=== PATIENT | female | born 2005 | race Caucasian/White ===

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

== ENCOUNTER 2023-10-14 10:42 | Outpatient (CLI) | payer BC, SELFPAY ==
--- OUTSIDE RECORDS SUMMARY | 2023-10-14 10:45 | XMS_ITS | Clinical Summary ---
Author Organization [facility] Address [place], [place] [address] Care Team Providers Care Repair Cameraman Name Role Phone Pcp, No Primary Care Provider Unavailabl e Allergies Active Allergy Reactions Criticality Noted Date Comments Doxycycline Hyclate Nausea And Vomiting Low 023 No breathing or cutaneous reaction. Medications Medication Sig Dispensed Refills Start Date End Date Status Becky 3-0.03 mg tablet Take 1 Tablet by mouth once daily. 08/12/2020 Active ketoconazole 2% shampoo (NIZORAL) 2 % shampoo apply on scalp every other day to daily and rinse well 10/22/2021 Active FLUoxetine (PROZAC) 20 mg capsule Take 20 mg by mouth once daily. 04/09/2022 Active omeprazole (PRILOSEC) 20 mg Delayed-Release capsule 05/21/2022 Active ondansetron (Zofran) 4 mg tabletIndications:Mitch sea Take 2 Tablets (8 mg) by mouth two times daily. 4 Tablet 05/27/2022 Active Active Problems Problem Noted Date Diagnosed Date Chlamydia 05/27/2022 STD exposure 05/27/2022 Social History Tobacco Use Types Packs/Day Years Used Date Smoking Tobacco: Never Passive Smoke Exposure: Never Smokeless Tobacco: Never Tobacco Cessation:Counseling Given: Not Answered Alcohol Use Standard Drinks/Week Comments Yes 0 (1 standard drink = 0.6 oz pur e alcohol) social/weekends PHQ-2 Answer Date Recorded PHQ-2 TOTAL SCORE 1 05/27/2022 Sex and Gender Information Value Date Recorded Sex Assigned at Not on file Gender Identity Not on file Sexual Orientation Not on file Obstetrics History Para Term AB IAB SAB Ectopic Multiple Livin g Live Births 0 0 0 0 0 0 0 0 0 0 0 Last Filed Vital Signs Vital Sign Reading Time Taken Comments Blood Pressure 110/68 05/27/2022 11:25 AM CDT Pulse 72 05/27/2022 11:25 AM CDT Temperature 36.3 ??C (97.4 ??F) 11/15/2021 10:32 AM C DT Respiratory Rate 16 11/15/2021 10:32 AM CDT Oxygen Saturation 99% 11/15/2021 10:32 AM CDT Inhaled Oxygen Concentration - - Weight 70.3 kg (155 lb) 05/27/2022 11:25 AM CDT Height 177.8 cm (5' 10) 05/27/2022 11:25 AM CDT Body Mass Index 22.24 05/27/2022 11:25 AM CDT Plan of Treatment Health Maintenance Due Date Last Done Comments Well Child Check for age 3-20 07/17/2006 Tdap 08/17/2014 HPV series for age 9-26 (1 - 3-dose series) 08/17/2018 COVID-19 vaccine series ( season) 2022 03/16/2021, 07/16/2020, 06/25/2020 BMI (ht and wt on same day) for age 18+ 05/28/2023 05/27/2022 Chlamydia for age 16-24 05/28/2023 05/28/19 23, 11/15/2021 Depression screening for age 12+ 05/28/2023 05/27/2022 Tetanus booster 2023 Influenza for age 9-49 10/31/2023 HIV for age 15-65 Completed 05/27/2022 Hepatitis C screening for ag e 18-79 Completed 05/27/2022 Meningococcal series for age 11-21 Aged Out No longer eligible b ased on patient's age to complete this topic Pneumococcal series for age 6-64 Aged Out No longer eligible b ased on patient's age to complete this topic Procedures Procedure Name Priority Date/Time Associated Diagnosis Comments LC HIV-1/O/2, 4TH GENERATION Routine 05/27/2022 11:47 AM CDT STD exposure LC HCV ANTIBODY RFX TO QUANT PCR Routine 05/27/2022 11:47 AM CDT STD exposure GC CHLAMYDIA TRACH PROBE Routine 05/27/2022 10:40 AM CDT STD exposure from Last 3 Months or Most Recently Relevant to Health Maintenance Results * LC HCV ANTIBODY RFX TO QUANT PCR (05/27/2022 11:47 AM CDT) HCV Ab Non Reactive Non Reactive 05/29/2022 10:10 AM CDT [facility] Blood BLOOD SPECIMEN / Unknown Venipuncture / Unknown 05/27/2022 11:47 AM CDT 05/27/2022 11:50 AM CDT Narrative [facility] - 05/29/2022 10:10 AM CDT Performed at: ??[address] - [address] ??[id number] Label Tacker: Arcadio Fraga MD, Phone: ??[phone] Germania Sullivan MD [facility] [address] [place] [address] * LC HIV-1/O/2, 4TH GENERATION (05/27/2022 11:47 AM CDT) HIV Scr 4th Gen Non Reactive Non Reactive 05/29/2022 11:09 AM CDT [facility] Comment: HIV Negative HIV-1/HIV-2 antibodies and HIV-1 p24 antigen were NOT detected. There is no laboratory evidence of HIV infection. Blood BLOOD SPECIMEN / Unknown Venipuncture / Unknown 05/27/2022 11:47 AM CDT 05/27/2022 11:50 AM CDT Narrative [facility] - 05/29/2022 11:09 AM CDT Performed at: ??01 - [facility] [address] ??[id number] Label Tacker: Arcadio Fraga MD, Phone: ??[phone] Germania Sullivan MD [facility] [address] * GC CHLAMYDIA TRACH PROBE (05/27/2022 10:40 AM CDT) CHLAMYDIA PROBE Negative 3:01 PM CDT [facility] N GONORRHOEAE PROBE Negative 05/28/2022 3:01 PM CDT [facility] Other VAGINAL SWAB / Unknown Non-Blood / Unknown 05/27/2022 10:40 AM CDT 05/27/2022 11:53 AM CDT Germania Sullivan MD MICROBIO LOGY [facility] [address] [place] [address], from Last 3 Months or Most Recently Relevant to Health Maintenance Care Teams Repair Cameraman Relationship Specialty Start Date End Date Pcp, No . PCP - General 02/11/19
--- OUTSIDE RECORDS SUMMARY | 2023-10-14 10:46 | XMS_ITS | Encounter Summary ---
Author Organization [facility] Address [address], [place] [address] Care Team Providers Care Station Installer Name Role Phone Ellen Perales MD Primary Care Provider [phone] Reason for Visit * Procedure/Equipment (Routine) - Closed Specialty Diagnoses / Procedures Referred By Mayco soria Referred To Contact Diagnoses Acute pain of left knee Procedures MR Knee Lt WO IV Cont Herbie Stewart, DO [address] [address] Referral ID Status Reason Start Date Expiration Date Visits Re quested Visits Authorized [id number] Closed 07/15/2023 10/13/2024 1 1 Encounter Details Date Type Department Care Team (Late st Contact Info) Description 07/16/2023 5:30 PM CDT Ancillary Procedure [facility] [address] Radiology MRI [address] [place] [phone] Herbie Stewart DO [address] [facility] [place] [address] Acute pain of left knee Social History Tobacco Use Types Packs/Day Years Used Date Smoking Tobacco: Never Smokeless Tobacco: Never Sex and Gender Information Value Date Recorded Sex Assigned at Not on file Gender Identity Not on file Sexual Orientation Not on file documented as of this encounter Plan of Treatment Upcoming Encounters Date Type Department Care Team (Late st Contact Info) Description 10/15/2023 8:40 AM CDT Appointment [facility] [address] [place] [phone] Bruno Nicolas PA-C [address] [place] [address] 11/10/2023 1:00 PM CDT Appointment [facility] [address] [place] [phone] [place] [address] [place] [address] documented as of this encounter Procedures Procedure Name Priority Date/Time Associated Diagnosis Comments MR KNEE LT WO IV CONT Routine 07/16/2023 5:47 PM CDT Acute pain of left knee documented in this encounter Results * MR Knee Lt WO IV Cont (07/16/2023 5:47 PM CDT) Anatomical Region Laterality Modality Lower Extremity, Knee, Skeletal, Thigh, Leg, MSK Left Magnetic Resonance 07/16/2023 5:22 PM CDT Impressions 07/16/2023 6:00 PM CDT COMPARISON: MRI 03/08/2023. TECHNIQUE: Routine MRI of the left knee was performed without contrast. FINDINGS: MEDIAL COMPARTMENT: There are no focal cartilage defects. Some degenerative signal at the root of the posterior horn medial meniscus is similar to previous. The medial meniscus is otherwise intact. LATERAL COMPARTMENT: There are no focal cartilage defects. The lateral meniscus is normal without evidence of tear. PATELLOFEMORAL JOINT: There are no focal cartilage defects in the patellofemoral joint. No significant joint effusion. Trace popliteal cyst similar to prior. No osteocartilaginous bodies are identified. Small amount of mildly increased signal within the intercondylar notch immediately superior to the PCL series 4 images 11 and 12, may reflect some mild synovitis. LIGAMENTS AND TENDONS: The anterior and posterior cruciate ligaments, medial collateral ligament, iliotibial band, fibular collateral ligament and biceps femoris tendons are intact. The popliteus muscle and tendons are normal. There is no evidence of injury to the posterolateral corner supporting structures. EXTENSOR MECHANISM: The quadriceps and patellar tendons are normal. The medial retinaculum, medial patellofemoral ligament, and lateral retinaculum are normal. MARROW AND SOFT TISSUES: Marrow signal is unremarkable. Previously noted marrow edema at the posterior aspect of the medial tibial plateau has resolved. No soft tissue mass. IMPRESSION: 1. Some degenerative signal at the root of the posterior horn medial meniscus similar to previous. . No discrete meniscal tear identified. 2. No ligamentous tear focal chondral defect. 3. Previously noted marrow edema at the posterior aspect of the medial tibial plateaus resolved. 4. Question some mild synovitis at the intercondylar notch. Narrative Procedure Note Justin Trujillo MD - 07/16/2023 IMPRESSION COMPARISON: MRI 03/08/2023. TECHNIQUE: Routine MRI of the left knee was performed without contrast. FINDINGS: MEDIAL COMPARTMENT: There are no focal cartilage defects. Somedegenerative signal at the root of the posterior horn medial meniscus issimilar to previous. The medial meniscus is otherwise intact. LATERAL COMPARTMENT: There are no focal cartilage defects. The lateralmeniscus is normal without evidence of tear. PATELLOFEMORAL JOINT: There are no focal cartilage defects in thepatellofemoral joint. No significant joint effusion. Trace popliteal cystsimilar to prior. No osteocartilaginous bodies are identified. Smallamount of mildly increased signal within the intercondylar notchimmediately superior to the PCL series 4 images 11 and 12, may reflectsome mild synovitis. LIGAMENTS AND TENDONS: The anterior and posterior cruciate ligaments,medial collateral ligament, iliotibial band, fibular collateral ligamentand biceps femoris tendons are intact. The popliteus muscle and tendonsare normal. There is no evidence of injury to the posterolateral cornersupporting structures. EXTENSOR MECHANISM: The quadriceps and patellar tendons are normal. Themedial retinaculum, medial patellofemoral ligament, and lateralretinaculum are normal. MARROW AND SOFT TISSUES: Marrow signal is unremarkable. Previously notedmarrow edema at the posterior aspect of the medial tibial plateau hasresolved. No soft tissue mass. IMPRESSION: 1. Some degenerative signal at the root of the posterior horn medialmeniscus similar to previous. . No discrete meniscal tear identified. 2. No ligamentous tear focal chondral defect. 3. Previously noted marrow edema at the posterior aspect of the medialtibial plateaus resolved. 4. Question some mild synovitis at the intercondylar notch. Herbie NEWBERRY MRI documented in this encounter Visit Diagnoses Diagnosis Acute pain of left knee documented in this encounter Care Teams Station Installer Relationship Specialty Start Date End Date Ellen Perales MD [address] [facility] [address] [place] [address] PCP - General 09/27/14 documented as of this encounter
--- OUTSIDE RECORDS SUMMARY | 2023-10-14 10:46 | XMS_ITS | Encounter Summary ---
Author Organization [facility] Address [address], [place] [address] Care Team Providers Care Wood Cut Engraver Name Role Phone Ellen Perales MD Primary Care Provider [phone] Reason for Referral * Therapies (Routine) - New Request Specialty Diagnoses / Procedures Referred By Mayco soria Referred To Contact Diagnoses Acute medial meniscus tear of left [place], [place] [address] [place] [address] [facility] [address] [address] Referral ID Status Reason Start Date Expiration Date V isits Requested Visits Authorized [id number] New Request 09/19/2023 09/18/2024 1 1 Scheduling Instructions This order is your clinician's recommendation for a service and is not an insurance referral which authorizes payment. The recommended service and/or location may not be covered by your insurance plan. Please call the number on your insurance card to find out your specific benefits and coverage for the recommended services and/or location. If you need help scheduling the recommended services, please ask your clinician's staff to assist you. Question Answer Appointment Urgency? Non-Urgent Requested Services Evaluate and treat May use saline for irrigation or cleansing Yes dexamethasone use Yes May check glucose per protocol (see policy link below) or if patient has symptoms? Yes Comments Left Knee Arthroscopy, Possible Partial Meniscectomy, Possible Meniscus Repair (Medial) scheduled for Tu, 09/28/23 Pt to start 3-5 days post op. Please see OP report for post op restrictions and protocol Encounter Details Date Type Department Care Team (Late st Contact Info) Description 09/19/2023 Notes/Orders [facility] [address] [place] [phone] [place] [address] [place] [address] Acute medial meniscus tear of left knee, subsequent encounter (Primary Dx) Social History Tobacco Use Types Packs/Day Years Used Date Smoking Tobacco: Never Smokeless Tobacco: Never Sex and Gender Information Value Date Recorded Sex Assigned at Not on file Gender Identity Not on file Sexual Orientation Not on file documented as of this encounter Plan of Treatment Upcoming Encounters Date Type Department Care Team (Late st Contact Info) Description 10/15/2023 8:40 AM CDT Appointment [facility] [address] [place] [phone] Bruno Nicolas PA-C [address] [place] [address] 11/10/2023 1:00 PM CDT Appointment [facility] [address] [place] [phone] [place] [address] [place] [address] Scheduled Referrals Name Type Priority Associated Diagnoses Orde r Schedule Physical Therapy Referral Routine Acute medial meniscus tear of left knee, subsequent encounter Ordered: 09/19/2023 documented as of this encounter Visit Diagnoses Diagnosis Acute medial meniscus tear of left knee, subsequent encounter- Primary documented in this encounter Care Teams Wood Cut Engraver Relationship Specialty Start Date End Date Ellen Perales MD [address] [facility] [address] [place] [address] PCP - General 09/27/14 documented as of this encounter
--- OUTSIDE RECORDS SUMMARY | 2023-10-14 10:46 | XMS_ITS | Encounter Summary ---
Author Organization [employer] Address [address] [address] Care Team Providers Care Insurance Sales Assistant Name Role Phone Ellen Perales MD Primary Care Provider Reason for Visit * (Routine) - Incomplete Specialty Diagnoses / Procedures Referred By Mayco soria Referred To Contact Procedures US Anesthesia Guided Herbie Muñoz MD [address] [place] [address] Referral ID Status Reason Start Date Expiration Date V isits Requested Visits Authorized [id number] Incomplete 09/28/2023 12/27/2024 1 1 Encounter Details Date Type Department Care Team (Late st Contact Info) Description 09/28/2023 10:20 AM CDT Ancillary Procedure Radiology PACS [address] [place] [address] Social History Tobacco Use Types Packs/Day Years Used Date Smoking Tobacco: Never Smokeless Tobacco: Never Alcohol Use Standard Drinks/Week Comments Never 0 (1 standard drink = 0.6 oz pur e alcohol) Humiliation, Afraid, Rape, a nd Kick questionnaire Answer Date Recorded Fear of Current or Ex-Partner Not on file Within the last year, have y ou been humiliated or emotionally abused in other ways by your partner or ex-partner? Patient unable to answer 09/28/2023 Within the last year, have y ou been kicked, hit, slapped, or otherwise physically hurt by your partner or ex-partner? Patient unable to answer 09/28/2023 Within the last year, have y ou been raped or forced to have any kind of sexual activity by your partner or ex-partner? Patient unable to answer 09/28/2023 PHQ-2 Answer Date Recorded PHQ-2 Score 0 09/21/2023 Sex and Gender Information Value Date Recorded Sex Assigned at Not on file Gender Identity Not on file Sexual Orientation Not on file documented as of this encounter Plan of Treatment Upcoming Encounters Date Type Department Care Team (Late st Contact Info) Description 10/15/2023 8:40 AM CDT Appointment [facility] [address] [place] [phone] Bruno Nicolas PA-C [address] [place] [address] 11/10/2023 1:00 PM CDT Appointment [facility] [address] [place] [phone] [place] [address] [place] [address] documented as of this encounter Procedures Procedure Name Priority Date/Time Associated Diagnosis Comments US ANESTHESIA GUIDED BLOCK STAT 09/28/2023 10:16 AM CDT documented in this encounter Results * US Anesthesia Guided Block (09/28/2023 10:16 AM CDT) Anatomical Region Laterality Modality Ultrasound Narrative 09/28/2023 10:16 AM CDT If an Anesthesia block was performed please see the Anesthesia encounter for documentation. ??This procedure was performed and interpreted by the performing provider. ?? Herbie Grande MD [facility] documented in this encounter Visit Diagnoses Not on filedocumented in this encounter Care Teams Insurance Sales Assistant Relationship Specialty Start Date End Date Ellen Perales MD [address] [facility] [address] [place] [address] PCP - General 09/27/14 documented as of this encounter
--- OUTSIDE RECORDS SUMMARY | 2023-10-14 10:46 | XMS_ITS | Encounter Summary ---
Author Organization [email or web address] Address [address], [place] [address] Care Team Providers Care C S S Representative Name Role Phone Ellen Perales MD Primary Care Provider Reason for Referral * Consult/Transfer Care (Routine) - New Request Specialty Diagnoses / Procedures Referred By Mayco soria Referred To Contact Diagnoses Chronic pain of left knee Frandy Merino MD [address] [place] [address] Referral ID Status Reason Start Date Expiration Date V isits Requested Visits Authorized [id number] New Request 07/16/2023 10/14/2024 1 1 Scheduling Instructions Your clinician has recommended an appointment with [facility]. You can quickly make your appointment online at [email or web address]. You can also call [phone] for help scheduling your appointment. We suggest you call your health insurance company about your coverage and benefits for this appointment. Question Answer Appointment Urgency? Non-Urgent Reason for visit? Left knee medial meniscus The patient should be seen by: Orthopaedic Surgeon Comments Mariama Reason for Visit * Reason Comments KNEE PAIN Lt, Ongoing since MRI Results Encounter Details Date Type Department Care Team (Late st Contact Info) Description 07/16/2023 6:00 PM CDT Office Visit [facility] [address] [place] [address] Frandy Merino MD [address] [place] [address] Chronic pain of left knee (Primary Dx) Social History Tobacco Use Types Packs/Day Years Used Date Smoking Tobacco: Never Smokeless Tobacco: Never Sex and Gender Information Value Date Recorded Sex Assigned at Not on file Gender Identity Not on file Sexual Orientation Not on file documented as of this encounter Last Filed Vital Signs Vital Sign Reading Time Taken Comments Blood Pressure - - Pulse - - Temperature 36.6 ??C (97.9 ??F) 07/16/2023 6:09 PM CD T Respiratory Rate - - Oxygen Saturation - - Inhaled Oxygen Concentration - - Weight - - Height - - Body Mass Index - - documented in this encounter Patient Instructions * Patient Instructions* Cheryl Rosa ATC - 07/16/2023 6:00 PM CDT Thank you for choosing [facility] for your health care visit today. If you have any questions regarding your visit or next steps, please contact us at [phone]. Frandy Merino MD Medication Requests: Prescriptions are filled on Weekdays before 3:00PM For all medication refills: Request a refill using [employer] or contact your Pharmacy Paperwork Requests: FMLA or disability paperwork can be faxed to: [phone] Please allow 7-10 business days for completion of all paperwork. [facility] Worker's Compensation Services: E-mail Address: [email or web address] What is Know Your Cost? Know Your Cost is a service for patients and patient/members to call and receive personalized cost information and estimates across our care group. The phone number is (COST) Wednesday - Wednesday 8 AM to 5 PM To request copies of your medical records, call: [phone] (option 4) Diagnosis: Left knee medial meniscus pain Plan: Follow Up: With Dr. Leslie on 07/29 as scheduled. documented in this encounter Progress Notes * Frandy Merino MD - 07/16/2023 6:[address] [facility] Date of Service: 07/16/2023 ASSESSMENT/PLAN 1. Chronic pain of left knee -reviewed MRI -refer Orthopedics Knee Sports Catherine Brooks is a 17 y.o. female who presents for follow-up on chronic left knee pain that initially started back in December after she fainted to now reviewed new MRI results. Patient drove back from [place] where she goes to college 2 weeks ago and pain has been worsening ever since. She is difficulty localizing the pain and reports deep in her knee. She states she feels swollen but she does not appear swollen. She denies catching, locking, instability. She describes a burning type pain.Reviewed MRI which shows that she has resolution of her posterior bone bruising but still has a blunted edge of her medial meniscus posterior root. Discussed with patient possibility of a root tear that caused her bone bruise posteriorly and continues to bother her now. Recommended we have her see orthopedics to discuss further. Orders Placed This Encounter Orthopaedic Consult Adult/Peds Frandy Merino MD Primary Care Sports Medicine, [facility] SUBJECTIVE KNEE PAIN (Lt, Ongoing since 01/21) and MRI Results () Left knee pain Fainted in Dec after driving back in car 2wk ago --worsening pain Doesn't look swollen but feels swollen Deep inside, hard to describe location OBJECTIVE Pain Assessment Pain Side/Orientation: left Pain Location: knee (0-10) Pain Rating: Activity: 8 MR Knee Lt WO IV Cont COMPARISON: MRI 03/08/2023. TECHNIQUE: Routine MRI of [...] some mild synovitis at the intercondylar notch. documented in this encounter Plan of Treatment Upcoming Encounters Date Type Department Care Team (Late st Contact Info) Description 10/15/2023 8:40 AM CDT Appointment [facility] [address] [place] [phone] Bruno Nicolas PA-C [address] [place] [address] 11/10/2023 1:00 PM CDT Appointment [facility] [address] [place] [phone] [place] [address] [place] [address] Scheduled Referrals Name Type Priority Associated Diagnoses Orde r Schedule Orthopaedic Consult Adult/Peds Referral Routine Chronic pain of left knee Ordered: 07/16/2023 documented as of this encounter Visit Diagnoses Diagnosis Chronic pain of left knee- Primary Pain in joint, lower leg documented in this encounter Care Teams C S S Representative Relationship Specialty Start Date End Date Ellen Perales MD [address] [facility] [address] [place] [address] PCP - General 09/27/14 documented as of this encounter
--- OUTSIDE RECORDS SUMMARY | 2023-10-14 10:46 | XMS_ITS | Encounter Summary ---
Author Organization [employer] Address [address] [address] Care Team Providers Care Dog Pound Attendant Name Role Phone Ellen Perales MD Primary Care Provider Reason for Visit * Reason Comments Surgery, To Schedule Encounter Details Date Type Department Care Team (Late st Contact Info) Description 09/17/2023 Telephone [facility] Orthopa[facility]ics & Sports Medicine [address] [place] [address] [place] [address] [place] [address] Surgery, To Schedule Social History Tobacco Use Types Packs/Day Years Used Date Smoking Tobacco: Never Smokeless Tobacco: Never PHQ-2 Answer Date Recorded PHQ-2 Score 0 09/21/2023 Sex and Gender Information Value Date Recorded Sex Assigned at Not on file Gender Identity Not on file Sexual Orientation Not on file documented as of this encounter Nursing Notes * Lacy Childress I - 09/22/2023 10:06 AM CDT [facility] Orders completed. Surgery finalized for , 09/28/23. * Lacy Childress I - 09/17/2023 5:42 PM CDT Patient contacted. Left Knee Arthroscopy, Possible Partial Meniscectomy, Possible Meniscus Repair (Medial) scheduled for , 09/28/23 [facility] with Dr[address] Leslie. Pre-op & Post-ops scheduled. Patient requests to have PT @ [facility]. Outside PT Order will be faxed. Letter, List of Appts, Knee icemachine pamphlet & [facility] booklet placed @[facility] front end web developer for Patient to machine pecan picker this weekend. [facility] Orders needed. Outside [facility] Orders needed. PT will be @[facility]. documented in this encounter Plan of Treatment Upcoming Encounters Date Type Department Care Team (Late st Contact Info) Description 10/15/2023 8:40 AM CDT Appointment [facility] Orthopa[facility]ics & Sports Medicine [address] [place] [phone] Bruno Nicolas PA-C [address] [place] [address] 11/10/2023 1:00 PM CDT Appointment [facility] Orthopa[facility]ics & Sports Medicine [address] [place] [phone] [place] [address] [place] [address] documented as of this encounter Visit Diagnoses Not on filedocumented in this encounter Care Teams Dog Pound Attendant Relationship Specialty Start Date End Date Ellen Perales MD [address] [facility] [address] [place] [address] PCP - General 09/27/14 documented as of this encounter
--- OUTSIDE RECORDS SUMMARY | 2023-10-14 10:46 | XMS_ITS | Encounter Summary ---
Author Organization [employer] Address [address], [place] [address] Care Team Providers Care Aoc Operations Intelligence Chief Name Role Phone Ellen Perales MD Primary Care Provider Encounter Details Date Type Department Care Team (Latest Contact Info) Description 09/28/2023 Orders Only [facility] DEPART[facility] Provider, [place] [address] Social History Tobacco Use Types Packs/Day Years [...] Info) Description 10/15/2023 8:40 AM CDT Appointment [facility]opa[facility]ics & Sports Medicine [address] [place] [phone] Bruno Nicolas PA-C [address] [place] [address] 11/10/2023 1:00 PM CDT Appointment [facility]ics [facility] Sports Medicine [address] [place] [phone] [place] [address] [place] [address] documented as of this encounter Procedures Procedure Name Priority Date/Time Associated Diagnosis Comments EKG 09/28/2023 documented in this encounter Results * EKG (09/28/2023) Interface Provider EKG documented in this encounter Visit Diagnoses Not on filedocumented in this encounter Care Teams Aoc Operations Intelligence Chief Relationship Specialty Start Date End Date Ellen Perales MD [address] [facility] [address] [place] [address] PCP - General 09/27/14 documented as of this encounter
--- OUTSIDE RECORDS SUMMARY | 2023-10-14 10:46 | XMS_ITS | Encounter Summary ---
Author Organization [facility] Address [address], [place] [address] Care Team Providers Care Ingredient Handler Name Role Phone Ellen Perales MD Primary Care Provider Reason for Referral * Procedure/Equipment (Routine) - Incomplete Specialty Diagnoses / Procedures Referred By Mayco t Referred To Contact Diagnoses Acute medial meniscus tear of left knee, subsequent encounter Procedures Case Request OR - Orthopedic Surgery: Left knee arthroscopy, possible partial meniscectomy, [place] [address] [place] [address] Referral ID Status Reason Start Date Expiration Date V isits Requested Visits Authorized [id number] Incomplete 09/22/2023 12/21/2024 1 1 Reason for Visit * Reason Comments Follow-up Left knee Encounter Details Date Type Department Care Team (Late st Contact Info) Description 09/17/2023 8:00 AM CDT Office Visit [facility] [place] [facility] [address] [place] [address] [place] [address] [place] [address] Acute medial meniscus tear of left knee, subsequent encounter (Primary Dx) Social History Tobacco Use Types Packs/Day Years Used Date Smoking Tobacco: Never Smokeless Tobacco: Never PHQ-2 Answer Date Recorded PHQ-2 Score 0 09/21/2023 Sex and Gender Information Value Date Recorded Sex Assigned at Not on file Gender Identity Not on file Sexual Orientation Not on file documented as of this encounter Patient Instructions * Patient Instructions* Chago Hinson MD - 09/17/2023 8:00 AM CDT Thank you for being seen today at [facility] Your Diagnosis is: Medial meniscus possible tear, medial knee pain Your Recommended Treatment is: Surgery: Knee arthroscopy, possible partial meniscectomy, possible meniscus repair -This is a same day surgery, and typically takes 1-2 hours to complete. -Surgery is done through two poke hole incisions on the front of the knee. Occasionally small incisions are required on the side of the knee for the repair. -If a repair is required, you will be partial weight bearing, using a brace and crutches for the first 4-6 weeks after surgery. No driving if it is your right leg until you are cleared for full weight bearing. -If it is just a trim (meniscectomy), then you are cleared for full weight bearing and no brace is needed. You will use crutches for support until you are able to walk without a limp -A meniscal repair takes 4-6 months for complete recovery, while a meniscectomy typically take 6-8 weeks for complete recovery For more information about your diagnosis, please visit: [email or web address]. On the top tab, click patient info, then patient education videos. Under the knee section, click on the meniscal tears video. Lacy is my energy scheduler. She will call you to arrange for a date and time. Her number is [phone] if you have any questions. Chago Hinson MD Orthopaedic Surgery [phone] documented in this encounter Progress Notes * Chago Hinson MD - 09/17/2023 8:00 AM CDTAddended by: CHAGO HINSON on: 09/22/2023 07:42 AM Modules accepted: Orders * Chago Hinson MD - 09/17/2023 8:00 AM CDT [facility] Orthopaedic Surgery and Sports Medicine Follow-Up/Pre-Operative Check 09/17/23 NAME: Catherine Brooks [facility]: [id number] Chief Complaint: Left knee pain. History of Present Illness: Catherine Brooks is a 18 y.o. female who presents accompanied by her father for follow-up of left knee pain. She has been attempting physical therapy once a week for the past 6 weeks. She continues to have medial sided knee pain all the time. She has been using ibuprofen and naproxen for this. Shestates her knee is worse compared to what it was when she was last seen. She reports the pain is on the inside of the knee, inside the kneecap. She found no benefit with physical therapy and states there was no much she could tolerate and was only able to have dry needling a couple of times, which she did not respond to and she also worked on the muscles around it. She reports being unable to perform the exercises at physical therapy. She reports no new injury. She reports occasional mechanical symptoms of locking, catching, popping, and clicking. She is going back to school around October 18. She is interested in having surgery to resolve this before she goes back to school. Physical Exam: General: The patient is alert, oriented in no acute distress. Neuro: Answers questions appropriately. Left Knee: Range of Motion: Extension: Full, Flexion: 140 Tenderness over the patella, most tenderness over the medial joint line. Nasrin's: Grade 1A Varus Stress: In full extension 0, at 30 degrees flexion negative Valgus Stress: In full extension 0, at 30 degrees flexion negative Bailey's to Varus: Positive Bailey's to Valgus: Negative Imaging: MRI of the left knee: MRI Impression (07/16/23): 1. Some degenerative signal at the root of the posterior horn medial meniscus similar to previous. . No discrete meniscal tear identified. 2. No ligamentous tear focal chondral defect. 3. Previously noted marrow edema at the posterior aspect of the medial tibial plateaus resolved. 4. Question some mild synovitis at the intercondylar notch. I ordered and independently reviewed and interpreted the imaging studies above; the results were discussed with the patient. Assessment: 1. Acute medial meniscus tear of left knee, subsequent encounter 18 y.o. female with persistent medial sided knee pain over the past 7 months with imaging showing degeneration and possible tearing of the posterior horn of the medial meniscus. She continues to haveintermittent mechanical symptoms. Plan: I had a lengthy discussion with the patient regarding non-surgical and surgical treatment for her left knee pain and possible meniscus tear. We discussed that we could consider a PRP injection and continue physical therapy as opposed to surgery. At this time, as the patient has exhausted non-surgical care for the past 7 months, she desires to proceed with surgery. Surgery will include left knee arthroscopy, possible partial medial menisectomy, possible meniscus repair. We will plan to have the patient arrange for a date and time in the near future. Scribe Disclosure: I, Hilda Kingston, am serving as a scribe to document services personally performed by Chago Hinson MD at this visit, based upon the provider's statements to me. All documentation has been reviewed by the aforementioned provider prior to being entered into the official medical record. Portions of this medical record were completed by a scribe. UPON MY REVIEW AND AUTHENTICATION BY ELECTRONIC SIGNATURE, this confirms (a) I performed the applicable clinical services, and (b) the record is accurate. Chago Hinson MD documented in this encounter Plan of Treatment Upcoming Encounters Date Type Department Care Team (Late st Contact Info) Description 10/15/2023 8:40 AM CDT Appointment [facility] Orthopaedics & Sports Medicine [address] [place] [phone] Bruno Nicolas PA-C [address] [place] [address] 11/10/2023 1:00 PM CDT Appointment [facility] Orthopaedics & Sports Medicine [address] [place] [phone] [place] [address] [place] [address] documented as of this encounter Visit Diagnoses Diagnosis Acute medial meniscus tear of left knee, subsequent encounter- Primary documented in this encounter Care Teams Ingredient Handler Relationship Specialty Start Date End Date Ellen Perales MD [address] [facility] [address] [place] [address] PCP - General 09/27/14 documented as of this encounter
--- OUTSIDE RECORDS SUMMARY | 2023-10-14 10:46 | XMS_ITS | Encounter Summary ---
Author Organization [employer] Address [address] [address] Care Team Providers Care Back Tender Pulp Drier Name Role Phone Ellen Perales MD Primary Care Provider [phone] Reason for Visit * Auth/Cert (Routine) Specialty Diagnoses / Procedures Referred By Mayco soria Referred To Contact Diagnoses Acute medial meniscus tear of left knee, subsequent encounter Procedures Left knee arthroscopy, possible partial meniscectomy, possible meniscus repair Referral ID Status Reason Start Date Expiration Date Visits Re quested Visits Authorized [id number] 1 1 Encounter Details Date Type Department Care Team (Late st Contact Info) Description 09/28/2023 11:30 AM CDT - 09/28/2023 12:55 PM CDT [facility] [address] [place] [phone] [place] [address] [place] [address] Left knee arthroscopy with limited debridement Social History Tobacco Use Types Packs/Day Years [...] Sign Reading Time Taken Comments Blood Pressure 108/65 09/28/2023 12:45 PM CDT Pulse 54 09/28/2023 12:45 PM CDT Temperature 36.6 ??C (97.9 ??F) 09/28/2023 12:20 PM C DT Respiratory Rate 18 09/28/2023 12:45 PM CDT Oxygen Saturation 100% 09/28/2023 12:45 PM CDT Inhaled Oxygen Concentration - - Weight - - Height - - Body Mass Index - - documented in this encounter Medications at Time of Discharge Medication Sig Dispensed Refills Start Date End Date acetaminophen (TYLENOL) 325 MG tablet Take 1-2 Tablets (325-650 mg) by mouth every 4 hours as needed for Pain. 60 Tablet 1 09/28/2023 FLUoxetine (PROZAC) 20 MG capsule Take 1 Capsule (20 mg) by mouth daily. ibuprofen (MOTRIN) 200 MG tablet Take 2-3 Tablets (400-600 mg) by mouth every 6 hours as needed for Pain. 60 Tablet 1 09/28/2023 ondansetron (ZOFRAN-ODT) 4 MG disintegrating tablet Take 1-2 Tablets (4-8 mg) by mouth every 8 hours as needed for Nausea. 10 Tablet 09/28/2023 oxyCODONE (ROXICODONE) 5 MG immediate release tablet Take 1-2 Tablets (5-10 mg) by mouth every 4 hours as needed for Pain. 30 Tablet 09/28/2023 senna (SENNA LAXATIVE) 8.6 MG tablet Take 1 Tablet by mouth two times daily as needed for Constipation. 10 Tablet 09/28/2023 MARGRET 3-0.03 MG tablet Take 1 Tablet by mouth daily. 04/23/2021 aspirin EC 81 MG enteric coated tablet Take 1 Tablet (81 mg) by mouth two times a day with meals for 14 days. Take as prescribed to decrease the risk of blood clots after surgery 28 Tablet 09/28/2023 10/12/2023 documented as of this encounter Progress Notes * Marilyn Narayanan RN - 09/22/2023 12:50 PM CDT PPA call completed by calling [phone] and spoke to patient. Advised of arrival time 0930. Reviewed pre-procedure questions, detailed instructions with NPO guidelines and address given. All questions answered, no other needs at this time. documented in this encounter H&P Notes * Chago Leslie MD - 09/28/2023 10:53 AM CDT Surgery Update for Preop History and Physical For 09/28/2023 scheduled procedure Update to H&P includes: Patient and/or family denies any health changes since the H&P This patient has been evaluated by me today and has been found to be a suitable candidate for surgery. 09/28/2023 Source Note - Cassi Lopez APRN, SPECIAL ASSEMBLIES SUPERVISOR - 09/21/2023 2:30 PM CDT Pre-Operative Assessment 09/21/2023 ET Amb PreOp Assessment Details Procedure Left Knee Arthroscopy, Possible Partial Meniscectomy, Possible Meniscus Repair (Medial) Surgeon Dr. Leslie [facility] Ambulatory Surgery Procedure Date 09/28/2023 Jim Alexander is a 18 y.o. old female here for pre-operative evaluation for procedure noted above. Patient Active Problem List Diagnosis Date Noted Anxiety with depression ([facility]) 09/21/2023 Irritable bowel syndrome with constipation 09/26/2019 Past Medical History: Diagnosis Date Chlamydia ([facility]) 05/27/2022 STD exposure 05/27/2022 History reviewed. No pertinent surgical history. Current Outpatient Medications Medication Instructions FLUoxetine (PROZAC) 20 mg, Oral, DAILY MARGRET 3-0.03 MG tablet 1 Tablet, Oral, DAILY Allergies Allergen Reactions Doxycycline Nausea And Vomiting No breathing or cutaneous reaction. Social History Occupational History Not on file Tobacco Use Smoking status: Never Smokeless tobacco: Never Vaping Use Vaping status: Never Used Substance and Sexual Activity Alcohol use: Never Drug use: Never Sexual activity: Not on file Patient's last menstrual period was 08/30/2023 (approximate). Family History Problem Relation Age of Onset Cancer Mother Review of Systems: 09/21/2023 ET Amb PreOp Assessment Sx Have you had a heart attack in the last 30 days? No Have you experienced chest tightening or chest pressure with activity? No Do you wake at night with difficulty breathing? No Do you have swelling in your feet or ankles? No Do you get short of breath if lying flat at night? No Do you hear wheezing or whistling when you breathe? No Have you had a cough, runny nose, or cold symptoms in the last 2 weeks? No Have you tested positive for Covid in the last 6 months? No Do you have a long-standing cough? No Do you snore or are you sleepy during the day? No Do you have any symptoms due to a recent concussion? No Do you or close relatives have bleeding or clotting problems? No Have you taken Aspirin, Ibuprofen (Advil) or Naproxen (Aleve) in the last 7 days? Yes Do you or close relatives have a history of a severe or life-threatening reaction to anesthesia? No Estimated Functional Capacity: Can you climb one flight of stairs, or walk up a gradual uphill without stopping? yes, functional capacity is more than or equal to 4 METS Objective BP 119/74 (BP Location: Right Arm, BP Cuff Size: Regular) Pulse 65 Ht 5' 9.88 (1.775 m) Wt 137 lb 3.2 oz (62.2 kg) LMP 08/30/2023 (Approximate) BMI 19.75 kg/m?? Physical Exam: General Appearance: alert, well appearing, and in no apparent distress Eyes: lids normal, sclera clear, and conjunctiva normal ENT: oropharynx clear, ear canals clear, and TMs normal Neck: no lymphadenopathy and no thyromegaly or nodules Heart: regular rate and rhythm and no murmurs, gallops or rubs Lungs: clear to auscultation and no wheezes, rales or rhonchi Abdomen: soft, nondistended, nontender, no palpable masses, and no organomegaly Extremities: no edema Skin: no rashes or worrisome lesions Neurologic: normal speech, no facial droop, alert and oriented x 3, and normal gait Data: Labs: Today: 09/21/2023. Hemoglobin 11.8 ECG: Not indicated for this procedure. Assessment/Plan Patient is medically optimized for planned procedure(s). ICD-10-CM 1. Preop examination Z01.818 Complete Blood Count-No Diff 2. Tear of medial meniscus of left knee, current, unspecified tear type, subsequent encounter S83.242D Special risks: None Medication recommendations: Patient Instructions Follow your individualized medication recommendations as described above. In addition, please stop all [id number] medications including aspirin, ibuprofen (Advil, Motrin), naproxen (Aleve, Naprosyn), herbal remedies and supplements one week prior to procedure unless directed otherwise by your care team. You may continue to take acetaminophen (Tylenol) up to the dayof your procedure. Continue all other medications as currently taking. Let your care team know if you have questions. On the day of your procedure, do not wear any hair product including hair sprays and gels and avoidusing body sprays and deodorants/antiperspirants. Bring with you to the site of the procedure: Any oral appliances or CPAP equipment related to sleep apnea Any other health-related equipment or devices you use daily Electronically signed by: Cassi Lopez APRN, CNP 09/21/2023, 3:25 PM documented in this encounter Procedure Notes * Chago Leslie MD - 09/28/2023 12:07 PM CDT OPERATIVE REPORT Catherine Matatz 2005 SURGEON: Chago Leslie MD ASSISTANTS: STEPHANIE Goodman DATE OF SURGERY: 09/28/2023 PREOPERATIVE DIAGNOSES: Left knee medial meniscus tear. POSTOPERATIVE DIAGNOSIS: Left knee medial meniscus intact Impinging synovitis anterior interval Exam under anesthesia: Left knee ROM 0 deg to 140 deg. ACL intact, negative sarthak. PCL intact, negative posterior drawer. LCL intact, negative varus stress test at 0 and 30 deg. MCL intact, negative valgus stress test at 0 and 30 deg. Impinging synovitis anterior interval Patella cartilage okay Trochlea cartilage okay Lateral tibial plateau cartilage okay Lateral femoral condyle cartilage okay Medial tibial plateau cartilage okay Medial femoral condyle cartilage okay Lateral meniscus intact, no tears. Medial meniscus intact, no tears. PROCEDURES PERFORMED: Left knee arthroscopy with limited debridement and partial synovectomy ANESTHESIA: General ANTIBIOTICS: 2g cefazolin prior to incision ESTIMATED BLOOD LOSS: 5cc TOURNIQUET TIME: 13 min @ 250 mmHg IMPLANTS: none SPECIMENS: None INDICATIONS: This is a 18 y.o. female who sustained a knee injury 8 months ago. This resulted in a medial meniscal injury, with resulted subjective pain, and the inability to perform activities despite exhaustive physical therapy and activity modification. After a thorough discussion of the risks and benefits of surgical treatment, risks include but are not limited to stiffness, arthrofibrosis, continued pain, swelling, retear, decreased sport performance, incision irritation, numbness, infection, blood clot, etc, I dictated a separate consent note, answered all questions and the patient elected to proceed. PROCEDURE: The patient was met in the holding area, limb was signed, and all questions were answered. Preoperative antibiotics were administered. The patient was then taken back to the main Operating Room and underwent a light general anesthetic without complication. The patient was prepped and draped in the usual sterile orthopedic fashion. A surgical timeout was taken confirming correct patient, correct site and correct procedure. A tourniquet was utilized during the case, insufflated to 250 mmHg, afterthe limb was exsanguinated. DIAGNOSTIC KNEE ARTHROSCOPY, LIMITED DEBRIDEMENT AND PARTIAL SYNOVECTOMY: First, a standard diagnostic arthroscopy was started using 2 anteromedial and anterolateral portals. The findings are as described above. I probed and checked all of the medial and lateral meniscus structures. These were fully intact. The cartilage was intact. I paid particular attention to the medial compartment, and created an accessory anteromedial portal for better assessment of the posterior root attachment. This appeared stable and intact. There are no cartilage injuries or other meniscal lesions in the medial compartment. There was synovitis and impinging fat pad in the anterior interval and suprapatellar pouch, and a limited debridement and partial synovectomy of these areas was performed with shaver and RF wand. After a thorough diagnostic arthroscopy, hemostasis was achieved, the tourniquet was let down,and all instruments were removed. CLOSURE: At this point, final pictures were taken and all instruments were removed from the knee. The wounds were closed with 3-0 Monocryl subcuticular stitch, followed by Steri-Strips, xeroform, 7x5hiiph, ABD, cast padding and an Yfn wrap. The patient was awakened from anesthesia without complication and taken to the PACU in stable condition. POSTOPERATIVE PLAN: Weight bearing status: WBAT Brace: none needed ROM: FROM PT plan: General knee arthroscopy protocol. Quadriceps activation, adequate hamstring control DVT prophylaxis: ASA BID x2 weeks Pain Medications: Patient will be discharged with tylenol, ibuprofen, and oxycodone, to take as needed for pain. Other Medications: Bowel regimen to include Senna 100mg BID while patient is taking narcotics. We will also prescribe Zofran 4mg ODT Q8hrs to take as need for nausea. Discharge plan: Plan to discharge patient home today with family, per same day criteria. Follow up: I will see the patient back in 10 to 14 days, or sooner if any concerns. Return to sport plans: Full activities approximately 2-3 months. Chago Leslie MD * Chago Leslie MD - 09/28/2023 12:06 PM CDT [facility] Brief Operative Progress Note Surgery Date: 09/28/2023 Surgeons and Role: * Chago Leslie MD - Primary Visitor: Vendor Chip Separator - Dale Colmenares - Comments: Arthrex Pre-op Diagnosis: * Acute medial meniscus tear of left knee, subsequent encounter [S83.779D] Post-op Diagnosis: * Acute medial meniscus tear of left knee, subsequent encounter [S83.727D] Procedures with associated lateralities: Procedure(s) (LRB): Left knee arthroscopy with limited debridement (Left) EBL: 5 Specimens: * No specimens in log * Complications / Findings: menisci and cartilage intact, synovitis in the anterior interval documented in this encounter Plan of Treatment Upcoming Encounters Date Type Department Care Team (Late st Contact Info) Description 10/15/2023 8:40 AM CDT Appointment [facility] [address] [place] [phone] Bruno Nicolas PA-C [address] [place] [id number] 11/10/2023 1:00 PM CDT Appointment [facility] [address] [place] [phone] [place] [address] [place] [address] documented as of this encounter Procedures Procedure Name Priority Date/Time Associated Diagnosis Comments ARTHROSCOPIC REPAIR KNEE MENISCUS (SDEX) Same Day Recovery 09/28/2023 11:05 AM CDT Acute medial meniscus tear of left knee, subsequent encounter US ANESTHESIA GUIDED BLOCK STAT 09/28/2023 10:16 AM CDT POCT URINE STAT 09/28/2023 9:43 AM CDT [facility] INLIGHT CAMERA IMAGES Routine 09/28/2023 9:23 AM CDT documented in this encounter Results * US Anesthesia Guided Block (09/28/2023 10:16 AM CDT) Anatomical Region Laterality Modality Ultrasound Narrative 09/28/2023 10:16 AM CDT If an Anesthesia block was performed please see the Anesthesia encounter for documentation. ??This procedure was performed and interpreted by the performing provider. ?? Herbie Grande MD RAD US * POCT urine - Surgery Use Only (09/28/2023 9:43 AM CDT) Urine Test - POC Negative Negative POCT Control Line Present, Clear Background - Internal control Yes POCT Cartridge Lot# [id number] POCT Urine 09/28/2023 9:43 AM CDT Chago Leslie MD ET POINT OF CARE ORESTES T ENTER/EDIT ORDERABLES POCT * [facility] Inlight Camera Images (09/28/2023 9:23 AM CDT) Anatomical Region Laterality Modality Endoscopy Narrative 09/28/2023 9:23 AM CDT These images were obtained during a surgical procedure. Chago Leslie MD RAD NON-REPORTABLES documented in this encounter Visit Diagnoses Diagnosis Acute medial meniscus tear of left knee- Primary Tear of medial cartilage or meniscus of knee, current Acute medial meniscus tear of left knee, subsequent encounter documented in this encounter Admitting Diagnoses Diagnosis Acute medial meniscus tear of left knee Tear of medial cartilage or meniscus of knee, current documented in this encounter Administered Medications Inactive Administered Medications - up to 3 most recent administrations Medication Order MAR Action Action Date Dose Rate Site acetaminophen (TYLENOL) tablet 1,000 mg 1,000 mg, Oral, ONCE, On Wed09/28/23 at 0945, For 1 dose, Give in pre-op., Pre-op Given 09/28/2023 9:48 AM CDT 1,000 mg BUPivacaine-EPINEPHrine (SENSORCAINE) 0.25% -[id number] injection ONCE PRN, Starting on Wed09/28/23 at 1125, Until Wed09/28/23 at 1505, Intra-op Given 09/28/2023 11:25 AM CDT 10 mL Left Knee celecoxib (CeleBREX) capsule 200 mg 200 mg, Oral, ONCE, On Wed09/28/23 at 0945, For 1 dose, Give in pre-op. DO NOT give if history of GI bleed or CT or sulfa allergy., Pre-op Given 09/28/2023 9:48 AM CDT 200 mg dextrose 5 % infusion Intravenous, at 250 mL/hr, ONCE PRN, Other, for nausea if all other options have failed and patient is not diabetic., Starting on Wed09/28/23 at 0926, For 1 dose, PACU/Recovery ePHEDrine 5 mg/mL injection 5-10 mg, Intravenous, [id number], Other, For systolic blood pressure less than 90 mmHg, Starting on Wed09/28/23 at 0926, Until Wed09/28/23 at 1505, Repeat every 5 minutes to a maximum cumulative dose of 15 mg. Notify anesthesiologist if med is given., PACU/Recovery ePHEDrine injection 25 mg 25 mg, Intramuscular, ONCE PRN, Other, for nausea or vomiting, Starting on Wed09/28/23 at 0926, For 1 dose, If multiple medications are ordered for nausea or vomiting - administer in the following priority based on medications ordered, effectiveness and availability: ondansetron (ZOFRAN) > prochlorperazine (COMPAZINE) > diphenhydrAMINE (BENADRYL) > hydrOXYzine HCl (VISTARIL)> ePHEDrine > scopolamine (TRANSDERM-SCOP)., PACU/Recovery EPINEPHrine 1 mg in sodium chloride for irrigation 3,000 mL ONCE PRN, Starting on Wed09/28/23 at 1140, Intra-op Given 09/28/2023 11:40 AM CDT 3,001 mL Left Knee fentaNYL (SUBLIMAZE) injection 50 mcg 50 mcg, Intravenous, [id number], Pain, The immediate postop period when faster on-set, short acting agent is desired., Starting on Wed09/28/23 at 0926, Until Wed09/28/23 at 1505, Administer every 5 minutes as needed, to a maximum cumulative dose of 250 mcg. Call Anesthesiologist if additional or greater doses needed For patients with a regional, spinal, or local anesthetic, may give for anticipated pain as the anesthetic wears off. Use fentanyl initially for a short acting agent for treatment of acute post-operative pain.?May be used in conjunction with alonger acting agent if ordered for optimal pain control.?Respiratory rate must be greater than 10 to administer medications., PACU/Recovery fentaNYL (SUBLIMAZE) injection 50-100 mcg 50-100 mcg, Intravenous, [id number], Pain, Sedation, Procedure, Starting on Wed09/28/23 at 1015, Until Wed09/28/23 at 1505, For 2 doses, As directed by anesthesiologist, Pre-op hydrALAZINE (APRESOLINE) injection 5 mg 5 mg, Intravenous, Q10MIN PRN, Other, High Blood Pressure, MAX 4 doses, hold for HR <50, Starting on Wed09/28/23 at 0926, Until Wed09/28/23 at 1505, For 4 doses, Call Anesthesiologist before administration. Give as directed by Anesthesiologist., PACU/Recovery HYDROmorphone (DILAUDID) injection 0.25 mg 0.25 mg, Intravenous, Q10MIN PRN, Pain, The immediate postop period when longer acting agent is desired., Starting on Wed09/28/23 at 0926, Until Wed09/28/23 at 1505, Maximum cumulative dose is 2 mg in PACU, call Anesthesiologist if additional or greater dosing is needed. For patients with a regional, spinal, or local anesthetic, may give for anticipated pain as the anesthetic wears off. , PACU/Recovery hydrOXYzine HCl (VISTARIL) injection 25 mg 25 mg, Intramuscular, ONCE PRN, Nausea/Vomiting, Starting on Wed09/28/23 at 0926, Until Wed09/28/23 at 1505, For 1 dose, If multiple medications are ordered for nausea or vomiting - administer in the following priority based on medications ordered, effectiveness and availability: ondansetron (ZOFRAN) > prochlorperazine (COMPAZINE) > diphenhydrAMINE (BENADRYL) > hydrOXYzine HCl (VISTARIL)> ePHEDrine > scopolamine (TRANSDERM-SCOP)., PACU/Recovery labetalol (NORMODYNE) injection 5 mg 5 mg, Intravenous, Q10MIN PRN, Other, High Blood Pressure, MAX 5 doses, hold for HR <50, Starting on Wed09/28/23 at 0926, Until Wed09/28/23 at 1505, For 5 doses, Call Anesthesiologist before administration. Give as directed by Anesthesiologist., PACU/Recovery lactated ringers infusion 25 mL/hr, Intravenous, CONTINUOUS, Starting on Wed09/28/23 at 0945, Administer on all preop surgery patients, ages 12 and older, unless specified differently in the Protocol for Preop Initiation of IV fluids Order Set., Pre-op Restarted 09/28/2023 11:43 AM CDT Continued by Anesthesia 09/28/2023 11:10 AM CDT 25 mL/hr Started 09/28/2023 10:23 AM CDT 25 mL/hr 25 mL/hr lidocaine PF (XYLOCAINE) 1 % injection 0.1-0.3 mL 0.1-0.3 mL, Intradermal, PRN, Other, for additional IV starts, Starting on Wed09/28/23 at 1015, Pre-op meperidine (DEMEROL) injection 12.5 mg 12.5 mg, Intravenous, [id number], Shivering, Starting on Wed09/28/23 at 0926, Until Wed09/28/23 at 1505, For 2 doses, Maximum cumulative dose is 25 mg. Do not give to patients receiving MAO inhibitors (e.g. phenelzine (NARDIL), tranylcypromine (PARNATE), selegiline (ELDEPRYL))., PACU/Recovery metoprolol tartrate (LOPRESSOR) injection 5 mg 5 mg, Intravenous, [id number], Other, High Blood Pressure, MAX 2 doses, hold for HR <50, Starting on Wed09/28/23 at 0926, Until Wed09/28/23 at 1505, For 2 doses, Call Anesthesiologist before administration. Give as directed by Anesthesiologist., PACU/Recovery midazolam (VERSED) injection 1-2 mg 1-2 mg, Intravenous, [id number], Sedation, Anxiety, Procedure, Starting on Wed09/28/23 at 1015, Until Wed09/28/23 at 1505, As directed by anesthesiologist MAX Dose 2mg, Pre-op naloxone (NARCAN) injection 0.08 mg 0.08 mg, Intravenous, PRN, Other, For respiratory rate less than 8/minute or patient difficult to arouse, Starting on Wed09/28/23 at 0926, Until Wed09/28/23 at 1505, May repeat every 3 minutes or until patient is responsive to physical stimulation and is able to take deep breaths. Maximum cumulative dose is 0.4 mg (1 mL). Continue to observe; if no response after administering total dose of 0.4 mg notify anesthesiologist STAT., PACU/Recovery naloxone (NARCAN) injection 0.4 mg 0.4 mg, Intravenous, ONCE PRN, Opioid Reversal, Starting on Wed09/28/23 at 0926, Until Wed09/28/23 at 1505, For 1 dose, For imminent respiratory arrest. Notify MD if naloxone is given., PACU/Recovery ondansetron (ZOFRAN) injection 4 mg 4 mg, Intravenous, Q4H PRN, Nausea, Vomiting, Starting on Wed09/28/23 at 0926, Until Wed09/28/23 at 1505, If multiple medications are ordered for nausea or vomiting - administer in the following priority based on medications ordered, effectiveness and availability: ondansetron (ZOFRAN) > prochlorperazine (COMPAZINE) > diphenhydrAMINE (BENADRYL) > hydrOXYzine HCl (VISTARIL)> ePHEDrine > scopolamine (TRANSDERM-SCOP)., PACU/Recovery oxyCODONE (ROXICODONE) immediate release tablet 5-10 mg 5-10 mg, Oral, Q4H PRN, Other, Moderate Pain or Severe Pain (1 tablet for pain level 5-7, 2 tablets for pain level 8-10), Starting on Wed09/28/23 at 1211, Until Wed09/28/23 at 1505, Post-op Given 09/28/2023 12:13 PM CDT 5 mg prochlorperazine (COMPAZINE) injection 5 mg 5 mg, Intravenous, Q15MIN PRN, Nausea, Vomiting, Starting on Wed09/28/23 at 0926, Until Wed09/28/23 at 1505, For 2 doses, 2nd dose may be given in 15-30 minutes if first dose not effective. Maximum of 2 doses only. If multiple medications are ordered for nausea or vomiting - administer in the following priority based on medications ordered, effectiveness and availability: ondansetron (ZOFRAN) > prochlorperazine (COMPAZINE) > diphenhydrAMINE (BENADRYL) > hydrOXYzine HCl (VISTARIL)> ePHEDrine > scopolamine (TRANSDERM-SCOP)., PACU/Recovery documented in this encounter Active and Recently Administered Medications Times are shown in CDT. Scheduled Medication Order 09/26/2023 09/27/2023 09/28/2023 acetaminophen (TYLENOL) tablet 1,000 mg (COMPLETED) 1,000 mg, Oral, ONCE, On Wed09/28/23 at 0945, For 1 dose, Give in pre-op., Pre-op 0948 (Given - Provid er: Rebeca Mohr RN) BUPivacaine-EPINEPHrine (SENSORCAINE) 0.25% -1:[id number] injection 10 mL 10 mL, Injection, ONCE, On Wed09/28/23 at 1230, For 1 dose, Hazardous waste disposal required., Intra-op 1230 (Due) ceFAZolin (ANCEF) 2 g in sodium chloride 0.9 % 50 mL IVPB (COMPLETED) 2 g, Intravenous, Administer over 30 Minutes, ONCE, On Wed09/28/23 at 0945, For 1 dose, Infuse within 60 minutes prior to incision; Re-dose 1 gram IV every 4 hours after initial dose until incision closed., Pre-op 1125 (Started - Prov ider: Jackie Johnson APRN, ATOMIZER ASSEMBLER) celecoxib (CeleBREX) capsule 200 mg (COMPLETED) 200 mg, Oral, ONCE, On Wed09/28/23 at 0945, For 1 dose, Give in pre-op. DO NOT give if history of GI bleed or CT or sulfa allergy., Pre-op 0948 (Given - Provid er: Rebeca Mohr RN) lidocaine PF (XYLOCAINE) 1 % injection 0.1-0.3 mL(Linked Group 1) 0.1-0.3 mL, Intradermal, ONCE, On Wed09/28/23 at 1045, For 1 dose, Lidocaine to be used for IV starts unless patient refuses., Pre-op 1045 (Due) Continuous Medication Order 09/26/2023 09/27/2023 09/28/2023 lactated ringers infusion 25 mL/hr, Intravenous, CONTINUOUS, Starting on Wed09/28/23 at 0945, Administer on all preop surgery patients, ages 12 and older, unless specified differently in the Protocol for Preop Initiation of IV fluids Order Set., Pre-op 1023 (Started - Prov ider: Rebeca Mohr RN)1110 (Continued by Anesthesia - Provider: Bryan Glasgow APRN, JULISSA)1142 (Stopped - Provider: Jackie Johnson APRN, JULISSA - Comment: Switch to gravity)1143 (Restarted - Provider: Jackie Johnson APRN, JULISSA) PRN Medication Order 09/26/2023 09/27/2023 09/28/2023 acetaminophen (TYLENOL) tablet 325-650 mg 325-650 mg, Oral, Q4H PRN, Other, Mild Pain (pain score 1-4), Starting on Wed09/28/23 at 1211, Until Wed09/28/23 at 1505, Give if able to take oral medications. Give for mild pain or if patient prefers acetaminophen over other options for pain (all pain scores)., Post-op BUPivacaine-EPINEPHrine (SENSORCAINE) 0.25% -[id number] injection ONCE PRN, Starting on Wed09/28/23 at 1125, Until Wed09/28/23 at 1505, Intra-op 1125 (Given - Provid er: Chago Leslie MD) dextrose 5 % infusion Intravenous, at 250 mL/hr, ONCE PRN, Other, for nausea if all other options have failed and patient is not diabetic., Starting on Wed09/28/23 at 0926, For 1 dose, PACU/Recovery ePHEDrine 5 mg/mL injection 5-10 mg, Intravenous, [id number], Other, For systolic blood pressure less than 90 mmHg, Starting on Wed09/28/23 at 0926, Until Wed09/28/23 at 1505, Repeat every 5 minutes to a maximum cumulative dose of 15 mg. Notify anesthesiologist if med is given., PACU/Recovery ePHEDrine injection 25 mg 25 mg, Intramuscular, ONCE PRN, Other, for nausea or vomiting, Starting on Wed09/28/23 at 0926, For 1 dose, If multiple medications are ordered for nausea or vomiting - administer in the following priority based on medications ordered, effectiveness and availability: ondansetron (ZOFRAN) > prochlorperazine (COMPAZINE) > diphenhydrAMINE (BENADRYL) > hydrOXYzine HCl (VISTARIL)> ePHEDrine > scopolamine (TRANSDERM-SCOP)., PACU/Recovery EPINEPHrine 1 mg in sodium chloride for irrigation 3,000 mL ONCE PRN, Starting on Wed09/28/23 at 1140, Intra-op 1140 (Given - Provid er: Chago Leslie MD) fentaNYL (SUBLIMAZE) injection 50 mcg 50 mcg, Intravenous, [id number], Pain, The immediate postop period when faster on-set, short acting agent is desired., Starting on Wed09/28/23 at 0926, Until Wed09/28/23 at 1505, Administer every 5 minutes as needed, to a maximum cumulative dose of 250 mcg. Call Anesthesiologist if additional or greater doses needed For patients with a regional, spinal, or local anesthetic, may give for anticipated pain as the anesthetic wears off. Use fentanyl initially for a short acting agent for treatment of acute post-operative pain.?May be used in conjunction with alonger acting agent if ordered for optimal pain control.?Respiratory rate must be greater than 10 to administer medications., PACU/Recovery fentaNYL (SUBLIMAZE) injection 50-100 mcg 50-100 mcg, Intravenous, [id number], Pain, Sedation, Procedure, Starting on Wed09/28/23 at 1015, Until Wed09/28/23 at 1505, For 2 doses, As directed by anesthesiologist, Pre-op hydrALAZINE (APRESOLINE) injection 5 mg 5 mg, Intravenous, Q10MIN PRN, Other, High Blood Pressure, MAX 4 doses, hold for HR <50, Starting on Wed09/28/23 at 0926, Until Wed09/28/23 at 1505, For 4 doses, Call Anesthesiologist before administration. Give as directed by Anesthesiologist., PACU/Recovery HYDROmorphone (DILAUDID) injection 0.25 mg 0.25 mg, Intravenous, Q10MIN PRN, Pain, The immediate postop period when longer acting agent is desired., Starting on Wed09/28/23 at 0926, Until Wed09/28/23 at 1505, Maximum cumulative dose is 2 mg in PACU, call Anesthesiologist if additional or greater dosing is needed. For patients with a regional, spinal, or local anesthetic, may give for anticipated pain as the anesthetic wears off. , PACU/Recovery hydrOXYzine HCl (VISTARIL) injection 25 mg 25 mg, Intramuscular, ONCE PRN, Nausea/Vomiting, Starting on Wed09/28/23 at 0926, Until Wed09/28/23 at 1505, For 1 dose, If multiple medications are ordered for nausea or vomiting - administer in the following priority based on medications ordered, effectiveness and availability: ondansetron (ZOFRAN) > prochlorperazine (COMPAZINE) > diphenhydrAMINE (BENADRYL) > hydrOXYzine HCl (VISTARIL)> ePHEDrine > scopolamine (TRANSDERM-SCOP)., PACU/Recovery ibuprofen (MOTRIN) tablet 600 mg 600 mg, Oral, Q6H PRN, Other, Mild Pain (pain score 1-4), Starting on Wed09/28/23 at 1211, Until Wed09/28/23 at 1505, Give if able to take oral medications. May give in addition to acetaminophen (TYLENOL) if pain not relieved by acetaminophen (TYLENOL) OR if acetaminophen (TYLENOL) has been given in the last 4 hours. Do not give ibuprofen and ketorolac together., Post-op labetalol (NORMODYNE) injection 5 mg 5 mg, Intravenous, Q10MIN PRN, Other, High Blood Pressure, MAX 5 doses, hold for HR <50, Starting on Wed09/28/23 at 0926, Until Wed09/28/23 at 1505, For 5 doses, Call Anesthesiologist before administration. Give as directed by Anesthesiologist., PACU/Recovery lidocaine PF (XYLOCAINE) 1 % injection 0.1-0.3 mL(Linked Group 1) 0.1-0.3 mL, Intradermal, PRN, Other, for additional IV starts, Starting on Wed09/28/23 at 1015, Pre-op meperidine (DEMEROL) injection 12.5 mg 12.5 mg, Intravenous, [id number], Shivering, Starting on Wed09/28/23 at 0926, Until Wed09/28/23 at 1505, For 2 doses, Maximum cumulative dose is 25 mg. Do not give to patients receiving MAO inhibitors (e.g. phenelzine (NARDIL), tranylcypromine (PARNATE), selegiline (ELDEPRYL))., PACU/Recovery metoprolol tartrate (LOPRESSOR) injection 5 mg 5 mg, Intravenous, [id number], Other, High Blood Pressure, MAX 2 doses, hold for HR <50, Starting on Wed09/28/23 at 0926, Until Wed09/28/23 at 1505, For 2 doses, Call Anesthesiologist before administration. Give as directed by Anesthesiologist., PACU/Recovery midazolam (VERSED) injection 1-2 mg 1-2 mg, Intravenous, [id number], Sedation, Anxiety, Procedure, Starting on Wed09/28/23 at 1015, Until Wed09/28/23 at 1505, As directed by anesthesiologist MAX Dose 2mg, Pre-op naloxone (NARCAN) injection 0.08 mg 0.08 mg, Intravenous, PRN, Other, For respiratory rate less than 8/minute or patient difficult to arouse, Starting on Wed09/28/23 at 0926, Until Wed09/28/23 at 1505, May repeat every 3 minutes or until patient is responsive to physical stimulation and is able to take deep breaths. Maximum cumulative dose is 0.4 mg (1 mL). Continue to observe; if no response after administering total dose of 0.4 mg notify anesthesiologist STAT., PACU/Recovery naloxone (NARCAN) injection 0.4 mg 0.4 mg, Intravenous, ONCE PRN, Opioid Reversal, Starting on Wed09/28/23 at 0926, Until Wed09/28/23 at 1505, For 1 dose, For imminent respiratory arrest. Notify MD if naloxone is given., PACU/Recovery ondansetron (ZOFRAN) injection 4 mg 4 mg, Intravenous, Q4H PRN, Nausea, Vomiting, Starting on Wed09/28/23 at 0926, Until Wed09/28/23 at 1505, If multiple medications are ordered for nausea or vomiting - administer in the following priority based on medications ordered, effectiveness and availability: ondansetron (ZOFRAN) > prochlorperazine (COMPAZINE) > diphenhydrAMINE (BENADRYL) > hydrOXYzine HCl (VISTARIL)> ePHEDrine > scopolamine (TRANSDERM-SCOP)., PACU/Recovery oxyCODONE (ROXICODONE) immediate release tablet 5-10 mg 5-10 mg, Oral, Q4H PRN, Other, Moderate Pain or Severe Pain (1 tablet for pain level 5-7, 2 tablets for pain level 8-10), Starting on Wed09/28/23 at 1211, Until Wed09/28/23 at 1505, Post-op 1213 (Given - Provid er: Lubna Avelar RN) prochlorperazine (COMPAZINE) injection 5 mg 5 mg, Intravenous, Q15MIN PRN, Nausea, Vomiting, Starting on Wed09/28/23 at 0926, Until Wed09/28/23 at 1505, For 2 doses, 2nd dose may be given in 15-30 minutes if first dose not effective. Maximum of 2 doses only. If multiple medications are ordered for nausea or vomiting - administer in the following priority based on medications ordered, effectiveness and availability: ondansetron (ZOFRAN) > prochlorperazine (COMPAZINE) > diphenhydrAMINE (BENADRYL) > hydrOXYzine HCl (VISTARIL)> ePHEDrine > scopolamine (TRANSDERM-SCOP)., PACU/Recovery Linked Groups Order Group 1: lidocaine PF (XYLOCAINE) 1 % injection 0.1-0.3 mLJump to med 0.1-0.3 mL, Intradermal, ONCE, On Wed09/28/23 at 1045, For 1 dose, Lidocaine to be used for IV starts unless patient refuses., Pre-op And lidocaine PF (XYLOCAINE) 1 % injection 0.1-0.3 mLJump to med 0.1-0.3 mL, Intradermal, PRN, Other, for additional IV starts, Starting on Wed09/28/23 at 1015, Pre-op documented in this encounter Care Teams Back Tender Pulp Drier Relationship Specialty Start Date End Date Ellen Perales MD [address] [place] [address] PCP - General 09/27/14 documented as of this encounter
--- OUTSIDE RECORDS SUMMARY | 2023-10-14 10:46 | XMS_ITS | Encounter Summary ---
Author Organization [employer] Address [address] [address] Care Team Providers Care Elevator Mechanic Apprentice Name Role Phone Ellen Perales MD Primary Care Provider Reason for Referral * Procedure/Equipment (Routine) - Incomplete Specialty Diagnoses / Procedures Referred By Contac t Referred To Contact Diagnoses Chronic pain of left knee [place] [address] [place] [address] Referral ID Status Reason Start Date Expiration Date V isits Requested Visits Authorized [id number] Incomplete 07/30/2023 10/28/2024 1 1 Reason for Visit * Reason Comments CONSULT Left knee * Consult/Transfer Care (Routine) - New Request Specialty Diagnoses / Procedures Referred By Contac t Referred To Contact Diagnoses Chronic pain of left knee Frandy Merino MD [address] [place] [address] Referral ID Status Reason Start Date Expiration Date V isits Requested Visits Authorized [id number] New Request 07/16/2023 10/14/2024 1 1 Encounter Details Date Type Department Care Team (Late st Contact Info) Description 07/30/2023 7:45 AM CDT Office Visit [facility] [address] [place] [phone] [place] [address] [facility] [place] [address] Chronic pain of left knee (Primary Dx) Social History Tobacco Use Types Packs/Day Years Used Date Smoking Tobacco: Never Smokeless Tobacco: Never Sex and Gender Information Value Date Recorded Sex Assigned at Not on file Gender Identity Not on file Sexual Orientation Not on file documented as of this encounter Patient Instructions * Patient Instructions* Chago Hinson MD - 07/30/2023 7:45 AM CDT Thank you for being seen today at [facility] Your Diagnosis is: Medial meniscus degeneration, medial knee pain Your Recommended Treatment is: Start Physical therapy Do exercises daily Follow-up in 4-6 weeks for recheck, sooner if concerns arise Chago Hinson MD Orthopaedic Surgery [phone] documented in this encounter Progress Notes * Chago Hinson MD - 07/30/2023 7:45 AM CDTAddended by: CHAGO HINSON on: 08/03/2023 12:53 PM Modules accepted: Level of Service * Chago Hinson MD - 07/30/2023 7:45 AM CDT [facility] Orthopaedic Surgery and Sports Medicine Consultation Note 07/30/23 NAME: Catherine Brooks CSN: [id number] Chief Complaint: Left knee pain Date of Injury: 01/04/2023 History of Present Illness: Catherine Brooks is a 17 y.o. female who presents for evaluation of left knee pain that occurred on an incident during 01/04/2023 when she fainted. MRI showed bruising and partial tearing of meniscus. She rested this but her pain has persisted and now has worsened over the past 1-2 months. Feels stiff. No formal physical therapy. The 01/04/2023 incident her whole body weight ended up falling on her left knee. She never had this issues when she used to play sports in the past. She recently drove back from [place] and during that trip the pain was exacerbated this was 2 weeks ago. She denies locking. She gets clicking which issometimes painful. She will test out her knee sometimes lightly on the treadmill and then the next day she will not be able to walk. Allergies: Doxycycline Current Medications: The patient has a current medication list which includes the following prescription(s): fluoxetine,ketoconazole, omeprazole, sprintec 28, and zunilda. Past Medical History: The patient has no past medical history on file. Past Surgical History: The patient has no past surgical history on file. Family History: The patient's family history includes Cancer in her mother. Social History: Attends [employer] in [place], [place] Non-smoker Socially drinks alcohol Physical Exam: General: The patient is alert, oriented in no acute distress. Neuro: Answers questions appropriately. Right Knee: Effusion: none Range of Motion: Hyperextension: 5, Flexion: 140 Patellar [place]: 2+/4 Medial and 2+/4 Lateral [place] Tenderness to Palpation of Lateral Joint Line: none Tenderness to Palpation of Medial Joint Line: none Nasrin's: Grade 1A Varus Stress: In full extension negative, at 30 degrees flexion negative Valgus Stress: In full extension negative, at 30 degrees flexion negative Bailey's to Varus: negative Bailey's to Valgus: negative Left Knee: Effusion: none Range of Motion: Hyperextension: 3, Flexion: 140 Patellar [place]: 2+/4 Medial and 2+/4 Lateral [place] Patellar Grind Test: negative Tenderness to Palpation of Lateral Joint Line: negative Tenderness to Palpation of Medial Joint Line: positive Nasrin's: 1A Varus Stress: In full extension negative, at 30 degrees flexion negative Valgus Stress: In full extension negative, at 30 degrees flexion negative Bailey's to Varus: positive Bailey's to Valgus: negative Mildly positive steinmann test. Imaging: MRI of the Left knee and XR left leg Views: XR Leg Length (07/30/2023) IMPRESSION COMPARISON: None. FINDINGS: No pelvic tilt. No significant degenerative change at the hips or knees. Very slight medial talar tilt on both sides. A vertical plumbline drawn from the right femoral head to the tibial plafond measures 927 mm and passes between the tibial spines. A vertical plumbline from from the left femoral head to the tibial plafond measures 923 mm and passes between the tibial spines Previous MRI Impression (03/08/2023): IMPRESSION: 1. Degenerative signal in the posterior root ligament of the medial meniscus without a discrete meniscal tear. 2. Marrow edema along the posterior aspect of the medial tibial plateau which could be due to a tuginjury (such as from the posterior root ligament), contusion, or a healing subacute fracture. No acute fracture. 3. No focal cartilage defects. Recent MRI Impression (07/16/2023): IMPRESSION: 1. Some degenerative signal at the root of the posterior horn medial meniscus similar to previous. . No discrete meniscal tear identified. 2. No ligamentous tear focal chondral defect. 3. Previously noted marrow edema at the posterior aspect of the medial tibial plateaus resolved. 4. Question some mild synovitis at the intercondylar notch. Dr. Hinson Impression: Demonstrates neutral coronal alignment and interval resolution of previous posterior tibial plateaubone bruise. Some degeneration of the medial menuis posteior root without clear tearing. I ordered and independently reviewed and interpreted the imaging studies above; the results were discussed with the patient. Assessment: ICD-10-CM 1. Chronic pain of left knee M25.562 XR Leg Length G89.29 17 y.o. female with medial sided knee pain in the setting of a degenerative medial meniscus root without signs of tearing or extrusion. Plan: I suggest the patient start physical therapy to work on hip, core, quadriceps strengthening and pain control. Follow up with me in 4-6 weeks if noticing significant improvement to consider further care. Scribe Disclosure: I, Jimmy Moreno, am serving as a scribe to document [...] Description 10/15/2023 8:40 AM CDT Appointment [facility] [address] [place] [phone] Bruno Nicolas PA-C [address] [place] [address] 11/10/2023 1:00 PM CDT Appointment [facility] [address] [place] [phone] [place] [address] [place] [address] documented as of this encounter Results * XR Leg Length (07/30/2023 7:51 AM CDT) Anatomical Region Laterality Modality Lower Extremity, Pelvis, Hip, Thigh, Knee, Leg, Ankle Digital Radiography 07/30/2023 7:41 AM CDT Impressions 07/30/2023 8:05 AM CDT COMPARISON: ??None. FINDINGS: No pelvic tilt. No significant degenerative change at the hips or knees. Very slight medial talar tilt on both sides. A vertical plumbline drawn from the right femoral head to the tibial plafond measures 927 mm and passes between the tibial spines. A vertical plumbline from from the left femoral head to the tibial plafond measures 923 mm and passes between the tibial spines. Narrative Procedure Note El Saenz MD - 07/30/2023 IMPRESSION COMPARISON: None. FINDINGS: No pelvic tilt. No significant degenerative change at the hips or knees. Very slightmedial talar tilt on both sides. A vertical plumbline drawn from the right femoral head to the tibialplafond measures 927 mm and passes between the tibial spines. A vertical plumbline from from the left femoral head to the tibial plafondmeasures 923 mm and passes between the tibial spines. Chago Hinson MD RAD [facility] documented in this encounter Visit Diagnoses Diagnosis Chronic pain of left knee- Primary Pain in joint, lower leg Chronic pain of left knee Pain in joint, lower leg documented in this encounter Care Teams Elevator Mechanic Apprentice Relationship Specialty Start Date End Date Ellen Perales MD [address] [facility] [address] [place] [address] PCP - General 09/27/14 documented as of this encounter
--- OUTSIDE RECORDS SUMMARY | 2023-10-14 10:46 | XMS_ITS | Encounter Summary ---
Author Organization [employer] Address [address], [place] [address] Care Team Providers Care Skidder Runner Name Role Phone Ellen Perales MD Primary Care Provider Reason for Visit * Reason Comments PRE-OP EXAM dos 09/28/23, Left Kn ee Arthroscopy, Possible Partial Meniscectomy, Possible Meniscus Repair (Medial) @ [facility], Dr. Leslie Encounter Details Date Type Department Care Team (Late st Contact Info) Description 09/21/2023 2:30 PM CDT [facility] [address] [place] [address] Cassi Lopez, RADIATION ONCOLOGY NURSE, HYDRAULIC DESIGN ENGINEER [address] [place] [address] Preop examination (Primary Dx); Tear of medial meniscus of left knee, current, unspecified tear type, subsequent encounter Social History Tobacco Use Types Packs/Day Years Used Date Smoking Tobacco: Never Smokeless Tobacco: Never Alcohol Use Standard Drinks/Week Comments Never 0 (1 standard drink = 0.6 oz pur e alcohol) PHQ-2 Answer Date Recorded PHQ-2 Score 0 09/21/2023 Sex and Gender Information Value Date Recorded Sex Assigned at Not on file Gender Identity Not on file Sexual Orientation Not on file documented as of this encounter Last Filed Vital Signs Vital Sign Reading Time Taken Comments Blood Pressure 119/74 09/21/2023 2:40 PM CDT Pulse 65 09/21/2023 2:40 PM CDT Temperature - - Respiratory Rate - - Oxygen Saturation - - Inhaled Oxygen Concentration - - Weight 62.2 kg (137 lb 3.2 oz) 09/21/2023 2:40 P M CDT Height 177.5 cm (5' 9.88) 09/21/2023 2:40 PM CD T Body Mass Index 19.75 09/21/2023 2:40 PM CDT documented in this encounter Patient Instructions * Patient Instructions* Cassi Lopez APRN, CNP - 09/21/2023 2:30 PM CDT Follow your individualized medication recommendations as described above. In addition, please stop all udrh-xmn-hsvjacy medications including aspirin, ibuprofen (Advil, Motrin), naproxen [...] health-related equipment or devices you use daily documented in this encounter Progress Notes * Cassi Lopez APRN, CNP - 09/21/2023 2:30 PM CDT Pre-Operative Assessment 09/21/2023 ET Amb PreOp Assessment Details Procedure Left Knee Arthroscopy, Possible Partial Meniscectomy, Possible Meniscus Repair (Medial) Surgeon Dr. Leslie [facility] Ambulatory Surgery Procedure Date 09/28/2023 Jim Alexander [...] described above. In addition, please stop all pokd-hkr-haruxax medications including aspirin, ibuprofen (Advil, Motrin), naproxen [...] 09/21/2023, 3:25 PM documented in this encounter Plan of Treatment Upcoming Encounters Date Type Department Care Team (Late st Contact Info) Description 10/15/2023 8:40 AM CDT Appointment [facility] [address] [place] [address] Bruno Nicolas PA-C [address] [place] [address] 11/10/2023 1:00 PM CDT Appointment [facility] [address] [place] [phone] [place] [address] [facility] [place] [id number] documented as of this encounter Results * (ABNORMAL) Complete Blood Count-No Diff (09/21/2023 2:56 PM CDT) WBC 4.3 3.5 - 10.5 x10(9)/L 09/21/2023 3:00 PM CDT [facility] RBC 3.96 3.90 - 5.03 x10(12)/L 09/21/2023 3:00 PM CDT [facility] Hemoglobin 11.8(L) 12.0 - 15.5 g/dL 09/21/2023 3:00 PM CDT [facility] HCT 35.3 34.9 - 44.5 % 09/21/2023 3:00 PM CDT [facility] MCV 89.1 80.0 - 100.0 fL 09/21/2023 3:00 PM CDT [facility] MCH 29.8 27.6 - 33.3 pg 09/21/2023 3:00 PM CDT [facility] MCHC 33.4 31.5 - 35.2 g/dL 09/21/2023 3:00 PM CDT [facility] RDW 13.1 11.9 - 15.5 % 09/21/2023 3:00 PM CDT [facility] Platelets 261 150 - 450 x10(9)/L 09/21/2023 3:00 PM CDT [facility] Blood Venipuncture / Unknown 09/21/2023 2:56 PM CDT 09/21/2023 2:56 PM CDT Cassi Lopez APRN, HYDRAULIC DESIGN ENGINEER LAB_1 [facility] [address] [place] [address], [facility] documented in this encounter Visit Diagnoses Diagnosis Preop examination- Primary Preoperative examination, unspecified Tear of medial meniscus of left knee, current, unspecified tear type, subsequent encounter documented in this encounter Care Teams Skidder Runner Relationship Specialty Start Date End Date Ellen Perales MD [address] [facility] [address] [place] [address] PCP - General 09/27/14 documented as of this encounter
--- OUTSIDE RECORDS SUMMARY | 2023-10-14 10:46 | XMS_ITS | Encounter Summary ---
Author Organization [employer] Address [address], [place] [address] Care Team Providers Care Clerk Specialist Name Role Phone Ellen Perales MD Primary Care Provider Reason for Visit * Procedure/Equipment (Routine) - Incomplete Specialty Diagnoses / Procedures Referred By Mayco t Referred To Contact Diagnoses Chronic pain of left knee [place] [address] [place] [address] Referral ID Status Reason Start Date Expiration Date V isits Requested Visits Authorized [id number] Incomplete 07/30/2023 10/28/2024 1 1 Encounter Details Date Type Department Care Team (Latest Contact Info) Description 07/30/2023 7:40 AM CDT Ancillary Procedure [facility] [place] [address] [facility] [address] [place] [phone] [place] [address] [place] [address] Chronic pain of left knee Social History Tobacco [...] Info) Description 10/15/2023 8:40 AM CDT [facility] [address] [place] [phone] Bruno Nicolas PA-C [address] [place] [address] 11/10/2023 1:00 PM CDT Appointment [facility] [address] [place] [phone] [place] [address] [place] [address] documented as of this encounter Procedures Procedure Name Priority Date/Time Associated Diagnosis Comments XR LEG LENGTH Routine 07/30/2023 7:51 AM CDT Chronic pain of left knee documented in this encounter Results * XR Leg Length [...] and passes between the tibial spines. Chago Leslie MD [facility] documented in this encounter Visit Diagnoses Diagnosis Chronic pain of left knee Pain in joint, lower leg documented in this encounter Care Teams Clerk Specialist Relationship Specialty Start Date End Date Ellen Perales MD [address] [facility] [address] [place] [address] PCP - General 09/27/14 documented as of this encounter
--- OUTSIDE RECORDS SUMMARY | 2023-10-14 10:46 | XMS_ITS | Encounter Summary ---
Author Organization [employer] Address [address], [place] [address] Care Team Providers Care Boilermaker Loftsman Name Role Phone Ellen Perales MD Primary Care Provider [phone] Encounter Details Date Type Department Care Team (Late st Contact Info) Description 09/21/2023 3:00 PM CDT Lab Visit [facility] [address] [place] [address] Preop examination Social History Tobacco Use Types Packs/Day Years [...] Encounters Date Type Department Care Team (Late Contact Info) Description 10/15/2023 8:40 AM CDT Appointment [facility] Medicine [address] [place] [phone] Bruno Nicolas PA-C [address] [place] [address] 11/10/2023 1:00 PM CDT Appointment [facility] Medicine [address] [place] [phone] [place] [address] [place] [address] documented as of this encounter Procedures Procedure Name Priority Date/Time Associated Diagnosis Comments COMPLETE BLOOD COUNT-NO DIFF Routine 09/21/2023 2:56 PM CDT Preop examination documented in this encounter Results * (ABNORMAL) Complete Blood Count-No Diff (09/21/2023 2:56 PM CDT) Pathologist [facility] WBC 4.3 3.5 - 10.5 x10(9)/L 09/21/2023 3:00 PM CDT [facility] RBC 3.96 3.90 - 5.03 x10(12)/L 09/21/2023 3:00 PM CDT [facility] Hemoglobin 11.8(L) 12.0 - 15.5 g/dL 09/21/2023 3:00 PM CDT [facility] HCT 35.3 34.9 - 44.5 % 09/21/2023 3:00 PM CDT [facility] MCV 89.1 80.0 - 100.0 fL 09/21/2023 3:00 PM CDT [facility] MCH 29.8 27.6 - 33.3 pg 09/21/2023 3:00 PM CDT [facility] MCHC 33.4 31.5 - 35.2 g/dL 09/21/2023 3:00 PM CDT [facility] RDW 13.1 11.9 - 15.5 % 09/21/2023 3:00 PM CDT [facility] Platelets 261 150 - 450 x10(9)/L 09/21/2023 3:00 PM CDT [facility] Blood Venipuncture / Unknown 09/21/2023 2:56 PM CDT 09/21/2023 2:56 PM CDT Cassi Lopez APRN, SALES SERVICE TECHNICIAN LAB_1 [facility] [address] [facility] [phone], [facility] documented in this encounter Visit Diagnoses Diagnosis Preop examination Preoperative examination, unspecified documented in this encounter Care Teams Boilermaker Loftsman Relationship Specialty Start Date End Date Ellen Perales MD [address] [facility] [address] [place] [address] PCP - General 09/27/14 documented as of this encounter
--- OUTSIDE RECORDS SUMMARY | 2023-10-14 10:46 | XMS_ITS | Encounter Summary ---
Author Organization [employer] Address [address] [address] Care Team Providers Care Diabetes Nurse Name Role Phone Ellen Perales MD Primary Care Provider Reason for Visit * Auth/Cert (Routine) Specialty Diagnoses / Procedures Referred By Mayco soria Referred To Contact Diagnoses Acute medial meniscus tear of left knee, subsequent encounter Procedures Left knee arthroscopy, possible partial meniscectomy, possible meniscus repair Referral ID Status Reason Start Date Expiration Date Visits Re quested Visits Authorized [id number] 1 1 Encounter Details Date Type Department Care Team (Late st Contact Info) Description 09/28/2023 11:10 AM CDT Anesthesia Event [facility] [address] [place] [phone] Herbie Grande MD [address] [place] [address] Jackie Johnson APRN, CRNA [address] [place] [address] Anesthesia Record Procedure Summary Procedure Name Responsible Anesthesiologist Anesthesia Start Time Anesthesia Stop Time Left knee arthroscopy with limited debridement (Left: Knee) Herbie Grande MD 09/28/23 1110 09/28/23 1202 Events Date Time Event Comment 09/28/2023 1026 1110 An Start 1110 An Start Data 1112 MD/DO Present 1116 An Induction 1117 An LMA 1134 An Tourn Inflated Left knee 250 torr 1147 An Tourn Deflated 1157 An LMA Removed Spontaneous r espirations with adequate air exchange. LMA removed without complications. Transported with oxygen to recovery. 1157 MD/DO Present 1158 an stop data 1202 Care Handoff Note I discusse d with the receiving nurse and we: 1) Identified the patient, chavis family member(s) or patient surrogate 2) Identified the responsible practitioner 3) Reviewed the pertinent medical history 4) Discussed the surgical/procedure course 5) Reviewed intra-op anesthesia management and issues during anesthesia 6) Set expectations for the post-procedure period 7) Allowed opportunity for questions and acknowledgement of understanding of report Electronically signed by Jackie Johnson APRN, FILLING HAULER 1202 An Stop Care transferre d. Meds Name Total midazolam injection 2 mg/2 mL (VERSED) 2 mg fentaNYL injection (SUBLIMAZE) 100 mcg lidocaine 1% PF injection (XYLOCAINE) 50 mg propofol 10 mg/mL for procedural sedatio n (aka diPRIvan) 200 mg propofol 10 mg/mL for procedural sedatio n (aka diPRIvan) 309.76 mg ondansetron injection (ZOFRAN) 4 mg dexamethasone 4 mg/mL injection (aka DEC ADRON) 8 mg ceFAZolin (ANCEF) 2 g in sodium chloride 0.9 % 50 mL IVPB 2 g lactated ringers infusion 600 mL dextrose 5% infusion 150 mL * Agents Name Identified Agent Name O2 N2O Air Sevoflurane () Sevoflurane (inspired) Nitrous Oxide () * Blood No blood administrations on file. Lines, Drains, and Airways Type Details Placement Removal Peripheral IV Placement Date: 09/28/23; Placement Time: 1023; Pre-existing: No; Inserted by?: Anesthesiologist; Size (Gauge): 22 G; Orientation: Posterior, Right; Site Prep: ChloraPrep; Local Anesthetic: Injectable; Insertion attempts: 5+; Blood draw with insertion?: no; Patient Tolerance: Tolerated well; Removal Date: 10/12/23; Removal Time: 1305 09/28/23 1023 by Rebeca Mohr RN 10/12/23 1305 by Libertad Discontinue LMA Placement Date: 09/28/23; Placement Time: 1117; Placed By: JULISSA; Induction Type: IV; Airway masking: Easy; Size (mm): 4; Placement details: Prepped and lubricated, Cuff inflated with minimum volume to create seal, Placed with ease; Difficulty: Easy; Placement verification: BBSE, auscultation, Positive EtCO2; Teeth and lips: Unchanged; Airway emergence: Following commands, Opening eyes, Spontaneous respirations, Adequate air exchange; Removal Date: 09/28/23; Removal Time: 1157; Transferred with Oxygen: Yes 09/28/23 1117 by Jackie Johnson APRN, JULISSA 09/28/23 1157 by Jackie Johnson APRN, CRNA Incision/Surgical Site 09/28/23; 1138; #1 (3 port sites); No; Knee; Left; 10/12/23; 1305 09/28/23 1138 by Etta Jean RN 10/12/23 1305 by Lda, Discontinue LMA Placement Date: 09/28/23; Placement Time: 1157; Placement verification: BBSE; Teeth and lips: Unchanged; Airway emergence: Following commands, Opening eyes, Spontaneous respirations, Adequate air exchange; Removal Date: 10/12/23; Removal Time: 1305; Transferred with Oxygen: Yes 09/28/23 1157 by Jackie Johnson APRN, CRNA 10/12/23 1305 by Lda, Discontinue documented in this encounter Social History Tobacco Use Types Packs/Day [...] on file documented as of this encounter Miscellaneous Notes * Anesthesia Postprocedure Evaluation - Herbie Grande MD - 09/28/2023 12:44 PM CDT [facility] Post-op Note Patient: Catherine Brooks Post-Op Diagnosis: Pre-Op Diagnosis Codes: * Acute medial meniscus tear of left knee, subsequent encounter [S83.242D] Procedure Performed: Procedure(s): Left - Left knee arthroscopy with limited debridement - Wound Class: 1 CLEAN Anesthesia Type: General Post-op vital signs: Vitals Value Taken Time BP 126/78 09/28/23 1231 Temp 36.6 ??C (97.9 ??F) 09/28/23 1220 Pulse 49 09/28/23 1244 Resp 18 09/28/23 1230 SpO2 100 % 09/28/23 1244 Vitals shown include unfiled device data. Pain Score: Preferred Pain Scale: number (Numeric Rating Pain Scale) (0-10) Pain Rating: Rest: 7 (0-10) Pain Rating: Activity: 7 Post-op assessment: Patient location: Phase 2 Airway Status: Patent Cardiovascular function: Satisfactory Hydration status: Satisfactory PONV: None Level of Consciousness: Awake Fully Participates Postop Assessment: Patient tolerated procedure well. Electronically signed by: Herbie Grande MD 09/28/2023 12:44 PM * Anesthesia Preprocedure Evaluation - Herbie Grande MD - 09/28/2023 10:05 AM CDT [facility] Anesthesia Pre-op Evaluation Procedure: Left knee arthroscopy, possible partial meniscectomy, possible meniscus repair, Left - Knee HPI: 18 y.o. old female. Pre-Op Diagnosis Codes: * Acute medial meniscus tear of left knee, subsequent encounter [S83.242D] Last Fluid Intake Time: 2099 Last Fluid Intake Date: 09/27/23 Last Food Intake Date: 09/27/23 Last Food Intake Time: 2100 Allergies Allergen Reactions Doxycycline Nausea And Vomiting No breathing or cutaneous reaction. Past Medical History: Diagnosis Date Chlamydia (HRC) 05/27/2022 STD exposure 05/27/2022 Patient Active Problem List Diagnosis Irritable bowel syndrome with constipation Anxiety with depression (HR) Acute medial meniscus tear of left knee No past surgical history on file. Outpatient Medications as of 09/28/2023 Medication Sig FLUoxetine (PROZAC) 20 MG capsule Take 1 Capsule (20 mg) by mouth daily. MARGRET 3-0.03 MG tablet Take 1 Tablet by mouth daily. Facility-Administered Medications as of 09/28/2023 Medication Dose Route Frequency [COMPLETED] acetaminophen (TYLENOL) tablet 1,000 mg 1,000 mg Oral Once ceFAZolin (ANCEF) 2 g in sodium chloride 0.9 % 50 mL IVPB 2 g Intravenous Once [COMPLETED] celecoxib (CeleBREX) capsule 200 mg 200 mg Oral Once dextrose 5 % infusion Intravenous ONCE PRN ePHEDrine 5 mg/mL injection 5-10 mg Intravenous Q5MIN PRN ePHEDrine injection 25 mg 25 mg Intramuscular ONCE PRN fentaNYL (SUBLIMAZE) injection 50 mcg 50 mcg Intravenous Q5MIN PRN hydrALAZINE (APRESOLINE) injection 5 mg 5 mg Intravenous Q10MIN PRN HYDROmorphone (DILAUDID) injection 0.25 mg 0.25 mg Intravenous Q10MIN PRN hydrOXYzine HCl (VISTARIL) injection 25 mg 25 mg Intramuscular ONCE PRN labetalol (NORMODYNE) injection 5 mg 5 mg Intravenous Q10MIN PRN lactated ringers infusion 25 mL/hr Intravenous Continuous meperidine (DEMEROL) injection 12.5 mg 12.5 mg Intravenous Q5MIN PRN metoprolol tartrate (LOPRESSOR) injection 5 mg 5 mg Intravenous Q5MIN PRN naloxone (NARCAN) injection 0.08 mg 0.08 mg Intravenous PRN naloxone (NARCAN) injection 0.4 mg 0.4 mg Intravenous ONCE PRN ondansetron (ZOFRAN) injection 4 mg 4 mg Intravenous Q4H PRN prochlorperazine (COMPAZINE) injection 5 mg 5 mg Intravenous Q15MIN PRN Labs: No results found for: SODIUM, K, CHLORIDE, CO2, BUN, CREATININE, GLUCOSE Lab Results Component Value Date/Time WBC 4.3 09/21/2023 02:56 PM HGB 11.8 (L) 09/21/2023 02:56 PM HCT 35.3 09/21/2023 02:56 PM PLTS 261 09/21/2023 02:56 PM No results found for: INR Urine test on 09/28/2023 was Negative. Blood Bank: No results found for: ABO, ABSCR EKG: No results found for this or any previous visit. Physical Exam: BP 111/69 Pulse (!) 49 Temp 36.2 ??C (97.2 ??F) (Temporal Artery) Resp 16 LMP 08/30/2023 (Approximate) SpO2 100% Assessment/Plan: Review of Systems Patient does not have GERD. Patient is not a current smoker. The patient denies alcohol use. Patient denies any recent URI. History of PONV: No. History of motion sickness: No. Patient denies any personal or family history of anesthesia complications. NPO Status: Acceptable. Exam Mental Status: Alert and oriented. Mallampati score: I (One). Mouth opening: Normal Thyromental Distance: > 3 finger breadths and Normal Neck Extension: Full Neck Circumference > 40 cm?: No Current airway assessment:Normal Dentition: Age appropriate. Cardiac Exam: Regular rate and rhythm. Respiratory Exam: Breath sounds clear to auscultation Assessment ASA Status: 2 . Plan Anesthesia type: General, LMA and Peripheral Nerve Block for Post- op Pain at Surgeon request Induction: Intravenous and Propofol Maintenance: TIVA PONV Risk Score Adult: 2 PONV Prophylaxis (planned): Ondansetron and Decadron Anesthetic plan, risks, benefits and alternatives discussed with the patient who agrees to the anesthesia treatment plan. Post-op pain block if needed in PACU The patient and/or their inside account representative were notified about the potential risks of damage to the lips, teeth, dental devices, mouth and airway. H&P Reviewed and Patient examined, no change observed IV access Antibiotics per surgery Electronically signed by: Herbie Grande MD 09/28/2023 10:05 AM documented in this encounter Plan of Treatment Upcoming Encounters Date Type Department Care Team (Late st Contact Info) Description 10/15/2023 8:40 AM CDT Appointment [facility] Medicine [address] [place] [phone] Bruno Nicolas PA-C [address] [place] [address] 11/10/2023 1:00 PM CDT Appointment [facility] Orthopa[facility] Sports [facility] [address] [place] [phone] [place] [address] [place] [address] documented as of this encounter Visit Diagnoses Not on filedocumented in this encounter Administered Medications Inactive Administered Medications - up to 3 most recent administrations Medication Order MAR Action Action Date Dose Rate Site ceFAZolin (ANCEF) 2 g in sodium chloride 0.9 % 50 mL IVPB 2 g, Intravenous, Administer over 30 Minutes, ONCE, On Wed09/28/23 at 0945, For 1 dose, Infuse within 60 minutes prior to incision; Re-dose 1 gram IV every 4 hours after initial dose until incision closed., Pre-op Started 09/28/2023 11:25 AM CDT 2 g dexAMETHasone (DECADRON) injection Intravenous, Starting on Wed09/28/23 at 1117, Until Wed09/28/23 at 1202 Given 09/28/2023 11:17 AM CDT 8 mg dextrose 5 % infusion Intravenous, Starting on Wed09/28/23 at 1144 Started 09/28/2023 11:44 AM CDT fentaNYL (SUBLIMAZE) injection Intravenous, Starting on Wed09/28/23 at 1117, Until Wed09/28/23 at 1202 Given 09/28/2023 11:17 AM CDT 100 mcg lactated ringers infusion 25 mL/hr, Intravenous, CONTINUOUS, [...] mL/hr lidocaine PF (XYLOCAINE) 1 % injection Intravenous, Starting on Wed09/28/23 at 1117 Given 09/28/2023 11:17 AM CDT 50 mg midazolam (VERSED) injection Intravenous, Starting on Wed09/28/23 at 1117, Until Wed09/28/23 at 1202 Given 09/28/2023 11:17 AM CDT 2 mg ondansetron (ZOFRAN) injection Intravenous, Starting on Wed09/28/23 at 1117, Until Wed09/28/23 at 1202 Given 09/28/2023 11:17 AM CDT 4 mg propofol (DIPRIVAN) 10 mg/mL injection Intravenous, Starting on Wed09/28/23 at 1117, Until Wed09/28/23 at 1202 Given 09/28/2023 11:17 AM CDT 200 mg propofol (DIPRIVAN) 10 mg/mL injection Intravenous, Starting on Wed09/28/23 at 1117, Until Wed09/28/23 at 1202 Rate/Dose Change 09/28/2023 11:47 AM CDT 80 mcg/kg/min 29.856 mL/hr Started 09/28/2023 11:17 AM CDT 150 mcg/kg/min 55.98 mL /hr documented in this encounter Care Teams Diabetes Nurse Relationship Specialty Start Date End Date Ellen Perales MD [address] [facility] [address] [place] [address] PCP - General 09/27/14 documented as of this encounter
--- OUTSIDE RECORDS SUMMARY | 2023-10-14 10:46 | XMS_ITS | Encounter Summary ---
Author Organization [employer] Address [address], [place] [address] Care Team Providers Care Technology Auditor Name Role Phone Ellen Perales MD Primary Care Provider [phone] Reason for Referral * (Routine) - Incomplete Specialty Diagnoses / Procedures Referred By Contac t Referred To Contact Procedures US Anesthesia Guided Herbie Muñoz MD [address] [place] [address] Referral ID Status Reason Start Date Expiration Date V isits Requested Visits Authorized [id number] Incomplete 09/28/2023 12/27/2024 1 1 * Procedure/Equipment (Routine) - Incomplete Specialty Diagnoses / Procedures Referred By Contac t Referred To Contact Procedures [facility] Inlight [place] [address] [place] [address] Referral ID Status Reason Start Date Expiration Date V isits Requested Visits Authorized [id number] Incomplete 09/28/2023 12/27/2024 1 1 Reason for Visit * Auth/Cert (Routine) Specialty Diagnoses / Procedures Referred By Contac t Referred To Contact Diagnoses Acute medial meniscus tear of left knee, subsequent encounter Procedures Left knee arthroscopy, possible partial meniscectomy, possible meniscus repair Referral ID Status Reason Start Date Expiration Date Visits Re quested Visits Authorized [id number] 1 1 Encounter Details Date Type Department Care Team (Latest Contact Info) Description 09/28/2023 9:21 AM CDT - 09/28/2023 1:05 PM CDT Hospital Encounter [facility] [address] [place] [phone] [place] [address] [place] [address] Discharge Disposition: Home Social History Tobacco Use Types Packs/Day Years [...] PM CDT PPA call completed by calling [phone] and spoke to patient. Advised of arrival [...] candidate for surgery. 09/28/2023 Source Note - John, Cassi L, FUNCTIONAL SKILLS TUTOR, CUSTOMER CARE PROFESSIONAL - 09/21/2023 2:30 PM CDT Pre-Operative Assessment 09/21/2023 ET Amb PreOp Assessment Details Procedure Left Knee Arthroscopy, Possible Partial Meniscectomy, Possible Meniscus Repair (Medial) Surgeon Dr. Leslie [facility] Procedure Date 09/28/2023 Jim Alexander [...] described above. In addition, please stop all qsio-tem-zppttiw medications including aspirin, ibuprofen (Advil, Motrin), naproxen [...] 09/28/2023 12:07 PM CDT OPERATIVE REPORT Catherine Brooks 2003 SURGEON: Chago Leslie MD ASSISTANTS: STEPHANIE [...] Monocryl subcuticular stitch, followed by Steri-Strips, xeroform, 3a8verdd, ABD, cast padding and an Yfn wrap. [...] Chago Leslie MD - Primary Visitor: Vendor Commissioning Specialist - Dale Colmenares - Comments: Arthrex Pre-op Diagnosis: * Acute medial meniscus tear of left knee, subsequent encounter [S83.242D] Post-op Diagnosis: * Acute medial meniscus tear of left knee, subsequent encounter [S83.242D] Procedures with associated lateralities: Procedure(s) (LRB): Left knee arthroscopy with limited debridement (Left) EBL: 5 Specimens: * No specimens in log * Complications / Findings: menisci and cartilage intact, synovitis in the anterior interval documented in this encounter Plan of Treatment Upcoming Encounters Date Type Department Care Team (Late st Contact Info) Description 10/15/2023 8:40 AM CDT Appointment [facility] [address] [place] [phone] Bruno Nicolas PA-C [address] [place] [address] 11/10/2023 1:00 PM CDT Appointment [facility] [address] [place] [phone] [place] [address] [place] [address] documented as of this encounter Procedures Procedure [...] - Internal control Yes POCT Cartridge Lot# [id number] POCT Urine 09/28/2023 9:43 AM CDT [...] of knee, current documented in this encounter Admitting Diagnoses Diagnosis [...] AM CDT 1,000 mg BUPivacaine-EPINEPHrine (SENSORCAINE) 0.25% -1:427776 injection ONCE PRN, Starting on Wed09/28/23 at 1125, Until Wed09/28/23 at 1505, Intra-op Given 09/28/2023 11:25 AM CDT 10 mL Left Knee celecoxib (CeleBREX) capsule 200 mg 200 mg, Oral, ONCE, On Wed09/28/23 at 0945, For 1 dose, Give in pre-op. DO NOT give if history of GI bleed or TX or sulfa allergy., Pre-op Given 09/28/2023 9:48 AM CDT 200 mg dextrose 5 % infusion Intravenous, at 250 mL/hr, ONCE PRN, Other, for nausea if all other options have failed and patient is not diabetic., Starting on Wed09/28/23 at 0926, For 1 dose, PACU/Recovery ePHEDrine 5 mg/mL injection 5-10 mg, Intravenous, [id number], Other, For systolic blood pressure less than [...] (SUBLIMAZE) injection 50 mcg 50 mcg, Intravenous, [id number], Pain, The immediate postop period when faster [...] (SUBLIMAZE) injection 50-100 mcg 50-100 mcg, Intravenous, [id number], Pain, Sedation, Procedure, Starting on Wed09/28/23 at [...] (DEMEROL) injection 12.5 mg 12.5 mg, Intravenous, [id number], Shivering, Starting on Wed09/28/23 at 0926, Until Wed09/28/23 at 1505, For 2 doses, Maximum cumulative dose is 25 mg. Do not give to patients receiving MAO inhibitors (e.g. phenelzine (NARDIL), tranylcypromine (PARNATE), selegiline (ELDEPRYL))., PACU/Recovery metoprolol tartrate (LOPRESSOR) injection 5 mg 5 mg, Intravenous, [id number], Other, High Blood Pressure, MAX 2 doses, hold for HR <50, Starting on Wed09/28/23 at 0926, Until Wed09/28/23 at 1505, For 2 doses, Call Anesthesiologist before administration. Give as directed by Anesthesiologist., PACU/Recovery midazolam (VERSED) injection 1-2 mg 1-2 mg, Intravenous, [id number], Sedation, Anxiety, Procedure, Starting on Wed09/28/23 at [...] er: Rebeca Mohr RN) BUPivacaine-EPINEPHrine (SENSORCAINE) 0.25% -1:755953 injection 10 mL 10 mL, Injection, ONCE, [...] (Started - Prov ider: Jackie Johnson APRN, ENGRAVER HAND HARD METALS) celecoxib (CeleBREX) capsule 200 mg (COMPLETED) 200 mg, Oral, ONCE, On Wed09/28/23 at 0945, For 1 dose, Give in pre-op. DO NOT give if history of GI bleed or TX or sulfa allergy., Pre-op 0948 (Given - [...] JULISSA)1142 (Stopped - Provider: Jackie Johnson APRN, CRNA - Comment: Switch to gravity)1143 (Restarted - [...] (all pain scores)., Post-op BUPivacaine-EPINEPHrine (SENSORCAINE) 0.25% -1:927703 injection ONCE PRN, Starting on Wed09/28/23 at 1125, Until Wed09/28/23 at 1505, Intra-op 1125 (Given - Provid er: Chago Leslie MD) dextrose 5 % infusion Intravenous, at 250 mL/hr, ONCE PRN, Other, for nausea if all other options have failed and patient is not diabetic., Starting on Wed09/28/23 at 0926, For 1 dose, PACU/Recovery ePHEDrine 5 mg/mL injection 5-10 mg, Intravenous, [id number], Other, For systolic blood pressure less than [...] (SUBLIMAZE) injection 50 mcg 50 mcg, Intravenous, [id number], Pain, The immediate postop period when faster [...] (SUBLIMAZE) injection 50-100 mcg 50-100 mcg, Intravenous, [id number], Pain, Sedation, Procedure, Starting on Wed09/28/23 at [...] (DEMEROL) injection 12.5 mg 12.5 mg, Intravenous, [id number], Shivering, Starting on Wed09/28/23 at 0926, Until Wed09/28/23 at 1505, For 2 doses, Maximum cumulative dose is 25 mg. Do not give to patients receiving MAO inhibitors (e.g. phenelzine (NARDIL), tranylcypromine (PARNATE), selegiline (ELDEPRYL))., PACU/Recovery metoprolol tartrate (LOPRESSOR) injection 5 mg 5 mg, Intravenous, [id number], Other, High Blood Pressure, MAX 2 doses, hold for HR <50, Starting on Wed09/28/23 at 0926, Until Wed09/28/23 at 1505, For 2 doses, Call Anesthesiologist before administration. Give as directed by Anesthesiologist., PACU/Recovery midazolam (VERSED) injection 1-2 mg 1-2 mg, Intravenous, [id number], Sedation, Anxiety, Procedure, Starting on Wed09/28/23 at [...] Pre-op documented in this encounter Care Teams Technology Auditor Relationship Specialty Start Date End Date Ellen Perales MD [address] [facility] [address] [place] [address] PCP - General 09/27/14 documented as of this encounter
--- OUTSIDE RECORDS SUMMARY | 2023-10-14 10:46 | XMS_ITS | Encounter Summary ---
Author Organization [employer] Address [address], [place] [address] Care Team Prov[address] Care Court Messenger Name Role Phone Ellen Perales MD Primary Care Provider Encounter Details Date Type Department Care Team (Late st Contact Info) Description 09/28/2023 Notes/Orders [facility] [address] [place] [phone] [place] [address] [place] [address] Social History Tobacco Use Types Packs/Day Years [...] 10/15/2023 8:40 AM CDT Appointment [facility] [address] [place] [phone] Bruno Nicolas PA-C [address] [place] [address] 11/10/2023 1:00 PM CDT Appointment [facility] [address] [place] [phone] [place] [address] [place] [address] documented as of this encounter Visit Diagnoses Not on filedocumented in this encounter Care Teams Court Messenger Relationship Specialty Start Date End Date Ellen Perales MD [address] [facility] [address] [place], [place] [phone] PCP - General 09/27/14 documented as of this encounter
--- OUTSIDE RECORDS SUMMARY | 2023-10-14 10:46 | XMS_ITS | Encounter Summary ---
Author Organization [employer] Address [address] [address] Care Team Providers Care Rn Wellness Name Role Phone Ellen Perales MD Primary Care Provider Reason for Visit * Auth/Cert (Routine) Specialty Diagnoses / Procedures Referred By Mayco soria Referred To Contact Diagnoses Acute medial meniscus tear of left knee, subsequent encounter Procedures Left knee arthroscopy, possible partial meniscectomy, possible meniscus repair Referral ID Status Reason Start Date Expiration Date Visits Re quested Visits Authorized [id number] 1 1 Encounter Details Date Type Department Care Team (Late st Contact Info) Description 09/28/2023 9:25 AM CDT Ancillary Procedure [facility] [address] [place] [phone] [place] [address] [place] [address] Social History Tobacco Use Types Packs/Day Years [...] Info) Description 10/15/2023 8:40 AM CDT Appointment [facility] [address] [place] [phone] Bruno Nicolas PA-C [address] [place] [address] 11/10/2023 1:00 PM CDT Appointment [facility] [address] [place] [phone] [place] [address] [place], [place] [phone] documented as of this encounter Procedures Procedure Name Priority Date/Time Associated Diagnosis Comments WAI INLIGHT CAMERA IMAGES Routine 09/28/2023 9:23 AM CDT documented in this encounter Results * [facility]AI Inlight Camera Images (09/28/2023 9:23 AM CDT) Anatomical Region Laterality Modality Endoscopy Narrative 09/28/2023 9:23 AM CDT These images were obtained during a surgical procedure. Chago Leslie MD RAD NON-REPORTABLES documented in this encounter Visit Diagnoses Not on filedocumented in this encounter Care Teams Rn Wellness Relationship Specialty Start Date End Date Ellen Perales MD [address] [facility] [address] [place] [address] PCP - General 09/27/14 documented as of this encounter
--- OUTSIDE RECORDS SUMMARY | 2023-10-14 10:46 | XMS_ITS | Clinical Summary ---
Author Organization [employer] Address [address] [address] Care Team Providers Care Chief Service Observer Name Role Phone Ellen Perales MD Primary Care Provider Source Comments You are receiving this document as you are listed as the primary care provider,follow-up provider, or the patient has been referred to you for consultation.This is in compliance with the Medicare and[facility] Hospital[facility] EHR Incentive Program,which states Providers who transition their patient to another setting of careor provider of care or refers their patient to another provider of care shouldprovide summary care record for each transition of care or referral. [employer] Allergies Active Allergy Reactions Criticality Noted Date Comments Doxycycline Nausea And Vomiting Low 05/27/2022 No breathing or cutaneous reaction. Medications Medication Sig Dispensed Refills Start Date End Date Status MARGRET 3-0.03 MG tablet Take 1 Tablet by mouth daily. 04/23/2021 Active FLUoxetine (PROZAC) 20 MG capsule Take 1 Capsule (20 mg) by mouth daily. Active ibuprofen (MOTRIN) 200 MG tablet Take 2-3 Tablets (400-600 mg) by mouth every 6 hours as needed for Pain. 60 Tablet 1 09/28/2023 Active acetaminophen (TYLENOL) 325 MG tablet Take 1-2 Tablets (325-650 mg) by mouth every 4 hours as needed for Pain. 60 Tablet 1 09/28/2023 Active oxyCODONE (ROXICODONE) 5 MG immediate release tablet Take 1-2 Tablets (5-10 mg) by mouth every 4 hours as needed for Pain. 30 Tablet 09/28/2023 Active senna (SENNA LAXATIVE) 8.6 MG tablet Take 1 Tablet by mouth two times daily as needed for Constipation. 10 Tablet 09/28/2023 Active ondansetron (ZOFRAN-ODT) 4 MG disintegrating tablet Take 1-2 Tablets (4-8 mg) by mouth every 8 hours as needed for Nausea. 10 Tablet 09/28/2023 Active SPRINTEC 28 0.25-35 MG-MCG tablet 08/10/2019 09/21/19 24 Discontinued ketoconazole (NIZORAL) 2 % shampoo Apply topically. 11/17/2021 09/21/19 24 Discontinued omeprazole (PRILOSEC) 20 MG capsule Take 1 Capsule (20 mg) by mouth daily. Take 1 hour before a meal. 09/21/19 24 Discontinued aspirin EC 81 MG enteric coated tablet Take 1 Tablet (81 mg) by mouth two times a day with meals for 14 days. Take as prescribed to decrease the risk of blood clots after surgery 28 Tablet 09/28/2023 10/12/19 24 Active Problems Problem Noted Date Diagnosed Date Anxiety with depression 09/21/2023 Acute medial meniscus tear of left knee 09/17/19 24 Irritable bowel syndrome with constipation 09/25 Resolved Problems Problem Noted Date Diagnosed Date Resolved Date Chlamydia 05/27/2022 09/21/2023 STD exposure 05/27/2022 09/21/2023 Ankle sprain 10/21/2014 04/22/2015 Encounters Date Type Department Care Team Description 09/28/2023 11:30 AM CDT - 09/28/2023 12:55 PM CDT Surgery [facility] [address] [place] [address] Chago Leslie MD Left knee arthroscopy with limited debridement 09/28/2023 11:10 AM CDT Anesthesia Event [facility] [address] [place] [address] Herbie Grande MD Holm, Jane A, APRN, JULISSA 09/28/2023 10:20 AM CDT Ancillary Procedure Radiology [facility] [address] [place] [id number] 09/28/2023 9:25 AM CDT Ancillary Procedure [facility] [address] [place] [address] Chago Leslie MD 09/28/2023 9:21 AM CDT - 09/28/2023 1:05 PM CDT Hospital Encounter [facility] [address] [place] [address] Chago Leslie MD Discharge Disposition: Home 09/28/2023 Orders Only HIM DEPARTMENT Provider, MD Doug 09/28/2023 Notes/Orders [facility] [address] [place] [address] Chago Leslie MD 09/21/2023 3:00 PM CDT Lab Visit [facility] [address] [place] [address] Preop examination 09/21/2023 2:30 PM CDT Pre-Op Visit [facility] [address] [place] [address] Cassi Lopez, MACHINE BOOKKEEPER, HAND CANDLE DIPPER Preop examination (Primary Dx); Tear of medial meniscus of left knee, current, unspecified tear type, subsequent encounter 09/19/2023 Notes/Orders [facility] [address] [place] [address] Chago Leslie MD Acute medial meniscus tear of left knee, subsequent encounter (Primary Dx) 09/17/2023 8:00 AM CDT Office Visit [facility] [address] [place] [address] Chago Leslie MD Acute medial meniscus tear of left knee, subsequent encounter (Primary Dx) 09/17/2023 Telephone [facility] [address] [place] [address] Chago Leslie MD Surgery, To Schedule 07/30/2023 7:45 AM CDT Office Visit [facility] [address] [place] [address] Chago Leslie MD Chronic pain of left knee (Primary Dx) 07/30/2023 7:40 AM CDT Ancillary Procedure [facility] [place] [address] [facility] [address] [place] [address] Chago Leslie MD Chronic pain of left knee 07/16/2023 6:00 PM CDT Office Visit [facility] [address] [place] [address] Frandy Merino MD Chronic pain of left knee (Primary Dx) 07/16/2023 5:30 PM CDT Ancillary Procedure [facility] [address] [place] [address] [place] [address] Herbie Stewart, Acute pain of left knee 07/15/2023 4:40 PM CDT Office Visit [facility] [address] [place] [address] Herbie Stewart, Acute pain of left knee (Primary Dx) from Last 3 Months Family History Medical History Relation Name Comments Cancer Mother Relation Name Status Comments Mother Alive Social History Tobacco Use Types Packs/Day Years Used Date Smoking Tobacco: Never Smokeless Tobacco: Never Tobacco Cessation:Counseling Given: Not Answered Alcohol Use Standard Drinks/Week Comments Never 0 [...] on file Sexual Orientation Not on file Last Filed Vital Signs Vital Sign Reading Time Taken Comments Blood Pressure 108/65 09/28/2023 12:45 PM CDT Pulse 54 09/28/2023 12:45 PM CDT Temperature 36.6 ??C (97.9 ??F) 09/28/2023 12:20 PM C DT Respiratory Rate 18 09/28/2023 12:45 PM CDT Oxygen Saturation 100% 09/28/2023 12:45 PM CDT Inhaled Oxygen Concentration - - Weight 62.2 kg (137 lb 3.2 oz) 09/21/2023 2:40 P M CDT Height 177.5 cm (5' 9.88) 09/21/2023 2:40 PM CD T Body Mass Index 19.75 09/21/2023 2:40 PM CDT Plan of Treatment Upcoming Encounters Date Type Department Care Team (Late st Contact Info) Description 10/15/2023 8:40 AM CDT Appointment [facility] [address] [place] [phone] Bruno Nicolas PA-C [address] [place] [address] 11/10/2023 1:00 PM CDT Appointment [facility] [address] [place] [phone] [place] [address] [place] [address] Health Maintenance Due Date Last Done Comments Hep C Screening (Preventive Services) 2003 HIV Screening (Preventive Services) 2019 Adult Preventive Visit 08/17/2021 HepB (1) 08/17/2022 COVID-19 Vaccine ( season) 2022 03/16/2021, 07/16/2020, 06/25/2020 Chlamydia 05/28/2023 05/27/2022, 04/30, 11/15/2021, Additional history exists Influenza (#1) 2023 12/05/2020, /03/2019, 11/24/2018, Additional history exists DTaP/Tdap/Td (6 - Tdap) 10/24/2025 10/25/19 16, 08/23/2008, 09/05/2007, Additional history exists Zoster/Shingles (1 of 2) 08/17/2053 Hib Completed 11/17/2004, 10/30, 2003, Additional history exists Pneumococcal Aged Out 11/17/2004, 01/30, 2003, Additional history exists No longer eligible based on patient's age to complete this topic HepA Completed 08/23/2008, 09/05/2007 IPV (Polio) Completed 08/23/2008, 04/29, 2003, Additional history exists HPV Vaccine Completed 05/16/2016, 10/25/2015 MCV4 Completed 02/08/2020, 10/25/2015 Procedures Procedure Name Priority Date/Time Associated Diagnosis Comments ARTHROSCOPIC REPAIR KNEE MENISCUS (SDEX) Same Day Recovery 09/28/2023 11:05 AM CDT Acute medial meniscus tear of left knee, subsequent encounter US ANESTHESIA GUIDED BLOCK STAT 09/28/2023 10:16 AM CDT POCT URINE STAT 09/28/2023 9:43 AM CDT [facility] INLIGHT CAMERA IMAGES Routine 09/28/2023 9:23 AM CDT EKG 09/28/2023 COMPLETE BLOOD COUNT-NO DIFF Routine 09/21/2023 2:56 PM CDT Preop examination XR LEG LENGTH Routine 07/30/2023 7:51 AM CDT Chronic pain of left knee MR KNEE LT WO IV CONT Routine 07/16/2023 5:47 PM CDT Acute pain of left knee CHLAMYDIA & GC (14 YEARS & OLDER) Routine 11/08/2021 11:58 AM CDT Vaginal discharge from Last 3 Months or Most Recently Relevant to Health Maintenance Results * US Anesthesia Guided Block (09/28/2023 [...] - Internal control Yes POCT Cartridge Lot# [id number] POCT Urine 09/28/2023 9:43 AM CDT Chago Leslie MD ET POINT OF CARE ORESTES T ENTER/EDIT ORDERABLES POCT * WAI Inlight Camera Images (09/28/2023 9:23 AM CDT) Anatomical Region Laterality Modality Endoscopy Narrative 09/28/2023 9:23 AM CDT These images were obtained during a surgical procedure. Chago Leslie MD RAD NON-REPORTABLES * EKG (09/28/2023) Interface Provider EKG * (ABNORMAL) Complete Blood Count-No Diff (09/21/2023 2:56 PM CDT) WBC 4.3 3.5 - 10.5 x10(9)/L 09/21/2023 3:00 PM CDT [facility] RBC 3.96 3.90 - 5.03 x10(12)/L 09/21/2023 3:00 PM CDT [facility] Hemoglobin 11.8(L) 12.0 - 15.5 g/dL 09/21/2023 3:00 PM CDT [facility] HCT 35.3 34.9 - 44.5 % 09/21/2023 3:00 PM CDT [facility] MCV 89.1 80.0 - 100.0 fL 09/21/2023 3:00 PM CDT [facility] MCH 29.8 27.6 - 33.3 pg 09/21/2023 3:00 PM CDT [facility] MCHC 33.4 31.5 - 35.2 g/dL 09/21/2023 3:00 PM CDT [facility] RDW 13.1 11.9 - 15.5 % 09/21/2023 3:00 PM CDT [facility] Platelets 261 150 - 450 x10(9)/L 09/21/2023 3:00 PM CDT [facility] Blood Venipuncture / Unknown 09/21/2023 2:56 PM CDT 09/21/2023 2:56 PM CDT Cassi Lopez APRN, CNP LAB_1 [facility] [address] [place] [address], [facility] * XR Leg Length (07/30/2023 7:51 AM [...] tibial spines. Chago Leslie MD RAD GD * MR Knee Lt WO IV Cont [...] mild synovitis at the intercondylar notch. Herbie Stewart DO RAD MRI * Chlamydia & GC (14 Years and Older) - Collect in Clinic Today (11/08/2021 11:58 AM CDT) Chlamydia Trachomatis STD Not Detected Not Detected 11/09/2021 12:20 PM CDT [facility] N. gonorrhoeae STD Not Detected Not Detected 11/09/2021 12:20 PM CDT [facility] Swab STD SPECIMEN FROM VAGINA / Unknown Non-blood Collection / Unknown 11/08/2021 11:58 AM CDT 11/08/2021 12:16 PM CDT Narrative [facility] - 11/09/2021 12:20 PM CDT Test performed by Spe[employer] Mediated Amplification (TMA). Angella Yao MD LAB_1 [facility] [address] [address] [phone] from Last 3 Months or Most Recently Relevant to Health Maintenance Advance Directives * Full Code (Latest Code Status on File) Date Activated Date Inactivated Comments 09/28/2023 11:00 AM 09/28/2023 3:05 PM Care Teams Chief Service Observer Relationship Specialty Start Date End Date Ellen Perales MD [address] [facility] [address] [place] [address] PCP - General 09/27/14
--- OUTSIDE RECORDS SUMMARY | 2023-10-14 10:47 | XMS_ITS | Encounter Summary ---
Author Organization [place] Address [address] [place] [id number] Care Team Providers Care Cuff Folder Name Role Phone No Ref-Primary, Physician Primary Care Provider Ellen Perales MD Unavailable [phone] Pj Tee MD Unavailable [phone] Reason for Visit * Reason Onset Date Comments Symptoms 04/27/2022 Chest pain and v omiting Encounter Details Date Type Department Care Team (Late st Contact Info) Description 04/27/[address] [facility] [id number] [place] [address] [address] [place] [address] Pj Tee MD [address] [place] [address] [phone] Symptoms (Chest pain and vomiting ) Social History Tobacco Use Types Packs/Day Years Used Date Smoking Tobacco: Never Smokeless Tobacco: Never Alcohol Use Standard Drinks/Week Comments Yes 2 (1 standard drink = 0.6 oz pur e alcohol) PHQ-2 Answer Date Recorded PHQ-2 Score 0 04/21/2022 Sex and Gender Information Value Date Recorded Sex Assigned at Not on file Gender Identity Not on file Sexual Orientation Not on file COVID-19 Exposure Response Date Recorded In the last 10 days, have yo u been in contact with someone who was confirmed or suspected to have Coronavirus/COVID-19? No / Unsure 04/21/2022 11:12 AM GATHERING WORKER documented as of this encounter Miscellaneous Notes * Telephone Encounter - Ariela Marques RN - 04/27/2022 2:23 PM CST Call placed to pt to review. n answer - left VM with recommendations for pt tpo have eval through ED. Unclear etiology of emesis with continued chest pain reports. Pt should have more comprehensive eval than what can be obtained through the cardiology clinic at this time. Will attempt recall if no call back and review if pt received recommendation for ED evaluation. Cheryl Marques RN, BSN. ERING WORKER * Telephone Encounter - Maryam Elias - 04/27/2022 1:34 PM CST [facility] Call Center Phone Message May a detailed message be left on voicemail: no Reason for Call: Other: Catherine called to report she has been continuing to experience chest pain and most recently has been vomiting which started 04/27/22 at approximately 2:30 am. Please reach out to Catherine at . Action Taken: Other: [facility] Cardiology Travel Screening: Not Applicable ERING WORKER documented in this encounter Plan of Treatment Not on file documented as of this encounter Visit Diagnoses Not on filedocumented in this encounter Care Teams Cuff Folder Relationship Specialty Start Date End Date No Ref-Primary, Physician PCP - General 01/06/22 Ellen Perales MD XXX RETIRED XXX [id number] [facility] [address] [place], [place] [id number] Pediatrics 01/06/22 05/05/23 Pj Tee MD [address] [place], [place] [address] Assigned Heart and Vascular Provider 04/25/22 documented as of this encounter
--- OUTSIDE RECORDS SUMMARY | 2023-10-14 10:47 | XMS_ITS | Clinical Summary ---
Author Organization [place] Address [address] [place] [address] Care Team Providers Care Cardiac Monitor Name Role Phone No Ref-Primary, Physician Primary Care Provider Pj Tee MD Unavailable Allergies No known active allergies Medications Medication Sig Dispensed Refills Start Date End Date Status MARGRET 3-0.03 MG tablet Take 1 tablet by mouth daily 11/03/2021 Active FLUoxetine (PROZAC) 20 MG capsule Take 20 mg by mouth daily 04/09/2022 Active ketoconazole (NIZORAL) 2 % external shampoo 10/22/2021 Acti ve Active Problems Problem Noted Date Diagnosed Date Irritable bowel syndrome with constipation 09/25 Immunizations Name Administration Dates Next Due Comvax (HIB/HepB) 2003,2003 DTAP (<7y) 08/23/2008, 5,02/20/2004,2003,2003 HEPATITIS A (PEDS 12M-18Y) 08/23/2008,09/05/2007 HIB (PRP-T) 11/17/2004 Hepatitis B, Peds 05/15/2004 Hpv, Unspecified 05/16/2016,10/25/2015 Influenza (intradermal) 10/25/2015,12/23/2007, Influenza Vaccine IM Ages 6- 35 Months 4 Valent (PF) 01/13/2006,12/22/2004,02/20/2004 MMR 08/23/2008,08/21/2004 Pneumococcal (PCV 7) 11/17/2004,02/20/20 04,2003,2003 Poliovirus, inactivated (IPV) 08/23/2008 ,05/15/2004,2003,2003 Tdap (Adult) Unspecified Formulation 09/05/2007, 08/21/2004 Social History Tobacco Use Types Packs/Day Years Used Date Smoking Tobacco: Never Smokeless Tobacco: Never Tobacco Cessation:Counseling Given: Not Answered Alcohol Use Standard Drinks/Week Comments Yes 2 (1 standard drink = 0.6 oz pur e alcohol) PHQ-2 Answer Date Recorded PHQ-2 Score 0 04/21/2022 Adolescent Education Answer Date Record ed Getting School Help Needed Not on file 11/20 Sex and Gender Information Value Date Recorded Sex Assigned at Not on file Gender Identity Not on file Sexual Orientation Not on file Last Filed Vital Signs Vital Sign Reading Time Taken Comments Blood Pressure 118/70 04/21/2022 11:14 AM MARKETING ACCOUNT MANAGER Pulse 65 04/21/2022 11:14 AM MARKETING ACCOUNT MANAGER Temperature 36.9 ??C (98.4 ??F) 04/12/2022 4:54 PM CS T Respiratory Rate 20 04/12/2022 11:15 PM MARKETING ACCOUNT MANAGER Oxygen Saturation 99% 04/21/2022 11:14 AM MARKETING ACCOUNT MANAGER Inhaled Oxygen Concentration - - Weight 72.1 kg (159 lb) 04/21/2022 11:14 AM MARKETING ACCOUNT MANAGER Height 177.8 cm (5' 10) 04/21/2022 11:14 AM MARKETING ACCOUNT MANAGER Body Mass Index 22.81 04/21/2022 11:14 AM MARKETING ACCOUNT MANAGER Plan of Treatment Health Maintenance Due Date Last Done Comments ADVANCE CARE PLANNING 2003 ANNUAL REVIEW OF HM ORDERS 2003 HIV SCREENING 08/17/2018 HEPATITIS C SCREENING 08/17/2021 YEARLY PREVENTIVE VISIT 10/10/2022 10/10/2021, 10/21 COVID-19 Vaccine ( season) 2022 03/16/2021, 07/16/2020, 06/25/2020 PHQ-2 (once per calendar year) 2023 04/21/2022 CHLAMYDIA SCREENING 07/21/2023 07/20/2022, 05/27/2022, 11/15/2021, Additional history exists INFLUENZA VACCINE (#1) 2023 3, 12/05/2020, 11/30/2019, Additional history exists DTAP/TDAP/TD IMMUNIZATION (7 - Td or Tdap) 10/24/2025 10/25/2015, 08/23/2008, 09/05/2007, Additional history exists HEPATITIS B IMMUNIZATION Completed 005, 2003, 2003 Pneumococcal Vaccine: Pediatrics (0 to 5 Years) and At-Risk Patients (6 to 64 Years) Aged Out 11/17/2004, 02/20/2004, 2003, Additional history exists No longer eligible based on patient's age to complete this topic IPV IMMUNIZATION Completed 08/23/2008, , 2003, Additional history exists HPV IMMUNIZATION Completed 05/16/2016, , 10/25/2015, Additional history exists MENINGITIS IMMUNIZATION Completed 02/08/2020, 10/24 RSV MONOCLONAL ANTIBODY Aged Out No l onger eligible based on patient's age to complete this topic Care Teams Cardiac Monitor Relationship Specialty Start Date End Date No Ref-Primary, Physician PCP - General 01/06/22 Pj Tee MD [address] [place] [id number] Assigned Heart and Vascular Provider 04/25/22
--- OUTSIDE RECORDS SUMMARY | 2023-10-14 10:47 | XMS_ITS | Encounter Summary ---
Author Organization [facility] Address [address] [address] Care Team Providers Care Building Services Technician Name Role Phone Ellen Perales MD Primary Care Provider Reason for Referral * Procedure/Equipment (Routine) - Closed Specialty Diagnoses / Procedures Referred By Mayco soria Referred To Contact Diagnoses Acute pain of left knee Procedures MR Knee Lt WO IV Cont Herbie Stewart DO [address] [facility] [place] [address] Referral ID Status Reason Start Date Expiration Date Visits Re quested Visits Authorized [id number] Closed 07/15/2023 10/13/2024 1 1 Reason for Visit * Reason Comments KNEE PAIN Left knee pain worse yared. Was seen 03/08/23 Encounter Details Date Type Department Care Team (Late st Contact Info) Description 07/15/2023 4:40 PM CDT Office Visit [facility] [address] [place] [address] Herbie Stewart DO [address] [facility] [place] [id number] Acute pain of left knee (Primary Dx) Social History Tobacco Use Types Packs/Day Years Used Date Smoking Tobacco: Never Smokeless Tobacco: Never Sex and Gender Information Value Date Recorded Sex Assigned at Not on file Gender Identity Not on file Sexual Orientation Not on file documented as of this encounter Patient Instructions * Patient Instructions* Danica Martinez - 07/15/2023 4:40 PM CDT Thank you for choosing [facility] for your health care visit today. Diagnosis: 1. Acute pain of left knee Plan: Follow Up: After MRI results. You may walk-in after your MRI scan, or schedule an appointment for follow-up. documented in this encounter Progress Notes * Herbie Stewart DO - 07/15/2023 12:00 AM CDT NAME: CATHERINE BROOKS CSN: [id number] CLINIC NOTE DATE OF SERVICE: 07/15/2023 : 2005 Catherine Brooks is a healthy-appearing 17-year-old woman, here to follow up for persisting left knee pain. She was last seen by myself in March of 2023 for followup of her left knee MRI. At that time showed evidence for posterior tibial plateau bone contusion with possible blunting at the posterior medial meniscus root. No dada tear was noted. I advised her on rest for 1 to 2 months, which shedid. She still has pain. The pain seems to be worsening with more clicking. No instability, locking, or swelling noted. PAST MEDICAL HISTORY: Reviewed in Epic. Temperature is afebrile. PHYSICAL EXAM: The patient is alert and oriented, in no acute distress. Gait is normal. Left knee exam reveals tenderness along medial joint line without effusion. Able to achieve full knee flexion and extension. 5/5 quadriceps, hamstring, gastrocsoleus strength. Negative anterior drawer, posteriordrawer, and Nasrin test. Negative varus and valgus stress test. Pain with Bailey test. No patellar apprehension with lateral shift. IMAGING: No x-rays indicated. ASSESSMENT AND PLAN: Persisting left knee pain with audible palpable click along the medial joint surface, worrisome for posterior medial meniscus root tear. Recommend MRI for further assessment. DO THOMAS CASTRO/DONA /[id number] documented in this encounter Plan of Treatment Upcoming Encounters Date Type Department Care Team (Late st Contact Info) Description 10/15/2023 8:40 AM CDT Appointment [facility] [address] [place] [address] Bruno Nicolas PA-C [address] [place] [address] 11/10/2023 1:00 PM CDT Appointment [facility] [address] [place] [address] [place] [address] [place] [address] documented as of this encounter Results * MR Knee Lt [...] intercondylar notch. Herbie Stewart DO RAD MRI documented in this encounter Visit Diagnoses Diagnosis Acute pain of left knee- Primary Acute pain of left knee documented in this encounter Care Teams Building Services Technician Relationship Specialty Start Date End Date Ellen Perales MD [address] [facility] [address] [place], [place] [phone] PCP - General 09/27/14 documented as of this encounter
--- OUTSIDE RECORDS SUMMARY | 2023-10-14 10:47 | XMS_ITS | Referral Summary ---
Author Organization [place] Address [address] [place] [address] Care Team Providers Care Coating Manager Name Role Phone No Ref-Primary, Physician Primary [...] Comments Blood Pressure 118/70 04/21/2022 11:14 AM GEOLOGICAL SCIENCE TEACHER Pulse 65 04/21/2022 11:14 AM GEOLOGICAL SCIENCE TEACHER Temperature 36.9 ??C (98.4 ??F) 04/12/2022 4:54 PM CS T Respiratory Rate 20 04/12/2022 11:15 PM GEOLOGICAL SCIENCE TEACHER Oxygen Saturation 99% 04/21/2022 11:14 AM GEOLOGICAL SCIENCE TEACHER Inhaled Oxygen Concentration - - Weight 72.1 kg (159 lb) 04/21/2022 11:14 AM GEOLOGICAL SCIENCE TEACHER Height 177.8 cm (5' 10) 04/21/2022 11:14 AM GEOLOGICAL SCIENCE TEACHER Body Mass Index 22.81 04/21/2022 11:14 AM GEOLOGICAL SCIENCE TEACHER Plan of Treatment Not on file Care Teams Coating Manager Relationship Specialty Start Date End Date No Ref-Primary, Physician PCP - General 01/06/22 Pj Tee MD [address] [place] [id number] Assigned Heart and Vascular Provider 04/25/22
[2023-10-14 23:31] LABS: Bacterial Vaginosis* Negative (Negative); Candida glab/krus NOT DETECTED (No Detected); Candida species DETECTED (No Detected); Trichomonas vaginalis NOT DETECTED (No Detected)
[2023-10-15 00:01] LABS: Chlamydia DNA Amplified* NOT DETECTED (No Detected); GC DNA Amplified* NOT DETECTED (No Detected)
== END 2023-10-14 10:43 | disposition home or self-care (01) ==
PROVIDERS: Visit Provider Registered Nurse
DX: N89.8 Other specified noninflammatory disorders of vagina (principal)
CPT/HCPCS: 81513; 86703; 87481; 87491; 87591; 87661